=== PATIENT | female | born 1945 | race Caucasian/White ===

== ENCOUNTER 2017-09-20 08:42 | Outpatient (CLI) | payer MEDICARE, BC ==
[~2017-09-20] VITALS: Ht 160 cm; Wt 77.5 kg
[~2017-09-20 08:42] MED LIST: GLUCOTROL XL 1010 MG PO; JANUVIA100 MG PO; LEVAQUIN750 MG PO; LISINOPRIL-HCTZ1 T13 PO; ROBITUSSIN AC (10 M1 PO; TENORMIN50 MG PO; ZOCOR40 MG PO
[2017-09-20 09:07] LABS: BASOPHILS 0.1 % (0-2); EOSINOPHILS 2.4 % (0-7); HEMATOCRIT 28.8 % (36.0-48.0); HEMOGLOBIN 9.5 g/dL (12-16); IMMATURE GRANULOCYTES 0.1 % (0-5); LYMPHOCYTES 25.6 % (15-50); MCH 30.6 pg (26.0-34.0); MCV 92.9 fL (80.0-100.0); MEAN PLATELET VOLUME 9.8 fL (7.4-10.4); MONOCYTES 7.5 % (2-11); NEUTROPHILS 64.3 % (40-80); PLATELET COUNT 226 10x3/uL (130-400); RDW 15.2 % (11.5-14.5); WBC 7.8 10x3/uL (4.8-10.8)
[2017-09-20 09:21] LABS: APTT 24.7 SECONDS (22.8-39.4); PROTIME 12.8 SECONDS (11.6-15.0)
[2017-09-20 09:26] LABS: ANION GAP 13.6 mmol/L (8-16); CALCIUM 8.5 mg/dL (8.5-10.1); CARBON DIOXIDE 24.7 mmol/L (21.0-32.0); CREATININE - SERUM 1.7 mg/dL (0.6-1.3); POTASSIUM - SERUM 4.3 mmol/L (3.5-5.1)
[2017-09-20] MEDS ORDERED: GLUCOPHAGE1000 MG PO (09:52)
[2017-09-20] MEDS ORDERED: HYZAAR 50-12.51 TAB PO (09:53)
[2017-09-20] MEDS ORDERED: PROTONIX40 MG PO (09:54)
[2017-09-20] MEDS ORDERED: WELCHOL625 MG (09:54)
[2017-09-20] MEDS ORDERED: BIOTIN5 MG PO (09:55)
[2017-09-20] MEDS ORDERED: CENTRUM SILVER1 TA1 PO (09:55)
[2017-09-20] MEDS ORDERED: PEPCID AC20 MG PO (09:56)
[2017-09-20 10:05] VITALS: Ht 160 cm; Wt 77.5 kg
== END 2017-09-20 14:45 | disposition home or self-care (01) ==
LOC: D.SP 08:42
PROVIDERS: Radiology Diagnostic Radiology
DX: D64.9 Anemia, unspecified (principal); Z01.812 Encounter for preprocedural laboratory examination

== ENCOUNTER 2017-10-23 06:30 | Day surgery (SDC) | payer MEDICARE, BC ==
[2017-10-20 14:27] LABS: BASOPHILS 0.1 % (0-2); EOSINOPHILS 2.4 % (0-7); HEMATOCRIT 27.6 % (36.0-48.0); IMMATURE GRANULOCYTES 0.1 % (0-5); LYMPHOCYTES 27.9 % (15-50); MCH 30.5 pg (26.0-34.0); MCHC 32.6 g/dL (31.0-37.0); MCV 93.6 fL (80.0-100.0); MEAN PLATELET VOLUME 9.9 fL (7.4-10.4); NEUTROPHILS 62.5 % (40-80); PLATELET COUNT 233 10x3/uL (130-400); RBC 2.95 10x6/uL (4.00-5.40); RDW 15.8 % (11.5-14.5)
[2017-10-20 14:41] LABS: APTT 24.4 SECONDS (22.8-39.4); INR 1.04 (0.85-1.17); PROTIME 13.2 SECONDS (11.6-15.0)
[2017-10-20 14:42] LABS: ANION GAP 9.3 mmol/L (8-16); CALCIUM 8.6 mg/dL (8.5-10.1); CARBON DIOXIDE 27.1 mmol/L (21.0-32.0); CREATININE - SERUM 1.4 mg/dL (0.6-1.3); POTASSIUM - SERUM 4.4 mmol/L (3.5-5.1)
[~2017-10-23] VITALS: Ht 160 cm; Wt 77.1 kg
[~2017-10-23 06:30] MED LIST changes: +BIOTIN5 MG PO; +CENTRUM SILVER1 TA1 PO; +GLUCOPHAGE1000 MG PO; +HYZAAR 50-12.51 TAB PO; +PEPCID AC20 MG PO; +PROTONIX40 MG PO; +WELCHOL625 MG
[2017-10-23 08:32] VITALS: BP 155/75; Ht 160 cm; Wt 77.1 kg
[2017-10-23] MEDS ORDERED: HYDROCODON-ACE1 EAC7 PO (09:59)
== END 2017-10-23 12:05 | disposition home or self-care (01) ==
LOC: D.OPS 06:30 → D.PAN 09:00 → D.OPS 10:00 → D.PAN 10:00 → D.OPS 12:05
PROVIDERS: Anesthesiology
DX: C90.00 Multiple myeloma not having achieved remission (principal); Z01.812 Encounter for preprocedural laboratory examination

== ENCOUNTER → 2017-12-21 13:16 | Outpatient (CLI) | payer MEDICARE, BC ==
[2017-10-23 08:32] VITALS: BMI 30.1
[~2017-12-21 13:16] MED LIST changes: +HYDROCODON-ACE1 EAC7 PO
== END | disposition home or self-care (01) ==
LOC: D.US 13:16
DX: I82.493 Acute embolism and thrombosis of other specified deep vein of lower extremity, bilateral (principal)

== ENCOUNTER 2018-03-28 05:20 | Outpatient (CLI) | payer MEDICARE, BC ==
[~2018-03-28] VITALS: Ht 160 cm; Wt 75.0 kg
[2018-03-28 05:52] LABS: BASOPHILS 0.1 % (0-2); EOSINOPHILS 2.8 % (0-7); HEMATOCRIT 29.8 % (36.0-48.0); HEMOGLOBIN 9.5 g/dL (12-16); IMMATURE GRANULOCYTES 0.4 % (0-5); LYMPHOCYTES 22.6 % (15-50); MCH 29.5 pg (26.0-34.0); MCHC 31.9 g/dL (31.0-37.0); MCV 92.5 fL (80.0-100.0); MONOCYTES 8.3 % (2-11); NEUTROPHILS 65.8 % (40-80); PLATELET COUNT 262 10x3/uL (130-400); RBC 3.22 10x6/uL (4.00-5.40); RDW 15.4 % (11.5-14.5); WBC 9.1 10x3/uL (4.8-10.8)
[2018-03-28 05:56] LABS: APTT 24.3 SECONDS (22.8-39.4); INR 1.02 (0.85-1.17)
[2018-03-28 06:13] LABS: ANION GAP 16.4 mmol/L (8-16); CALCIUM 9.2 mg/dL (8.5-10.1); CARBON DIOXIDE 25.7 mmol/L (21.0-32.0); CREATININE - SERUM 1.8 mg/dL (0.6-1.3); POTASSIUM - SERUM 4.1 mmol/L (3.5-5.1)
[2018-03-28 06:20] VITALS: BP 146/59; Ht 160 cm; Wt 75.0 kg
--- NOTE | 2018-03-28 09:24 | NUR ---
0900 SEE POST PROCEDURE CHECKLIST FOR VITAL SIGN TRENDS 0915 WATER SERVED
--- NOTE | 2018-03-28 09:24 | NUR ---
0915 NO BLEEDING FROM BX SITE
== END 2018-03-28 10:15 | disposition home or self-care (01) ==
LOC: D.SP 05:20 → D.CT 08:00 → D.SP 08:00
PROVIDERS: General Practice
DX: C90.00 Multiple myeloma not having achieved remission (principal)

== ENCOUNTER 2018-08-16 08:30 | Outpatient (CLI) | payer MEDICARE, BC ==
[~2018-08-16] VITALS: Ht 160 cm; Wt 72.7 kg
[2018-08-16 09:01] LABS: BASOPHILS 0.1 % (0-2); EOSINOPHILS 2.3 % (0-7); HEMATOCRIT 28.4 % (36.0-48.0); HEMOGLOBIN 9.2 g/dL (12-16); IMMATURE GRANULOCYTES 0.2 % (0-5); LYMPHOCYTES 20.8 % (15-50); MCH 29.8 pg (26.0-34.0); MCHC 32.4 g/dL (31.0-37.0); MCV 91.9 fL (80.0-100.0); MONOCYTES 7.5 % (2-11); NEUTROPHILS 69.1 % (40-80); PLATELET COUNT 219 10x3/uL (130-400); RBC 3.09 10x6/uL (4.00-5.40); WBC 8.1 10x3/uL (4.8-10.8)
[2018-08-16 09:12] LABS: ANION GAP 13.6 mmol/L (8-16); CALCIUM 9.3 mg/dL (8.5-10.1); CARBON DIOXIDE 26.4 mmol/L (21.0-32.0); CREATININE - SERUM 2.2 mg/dL (0.6-1.3)
[2018-08-16 09:13] LABS: APTT 25.6 SECONDS (22.8-39.4); INR 0.97 (0.85-1.17); PROTIME 12.4 SECONDS (11.6-15.0)
[2018-08-16] MEDS ORDERED: HYDRALAZINE HCL50 MG PO (09:58)
[2018-08-16] MEDS ORDERED: HCTZ25 MG PO (09:58)
[2018-08-16 10:00] VITALS: BP 132/57; Ht 160 cm; Wt 72.7 kg
--- NOTE | 2018-08-16 13:37 | NUR ---
1157-RECD TO ROOM FROM IR. ALERT. RESP WITH EASE. DRESSING TO R LUMBAR AREA DRY AND INTACT. DENIES PAIN. 1230-REGULAR LUNCH TRAY SERVED. NO NAUSEA.
--- NOTE | 2018-08-16 14:22 | NUR ---
1410-D/C HOME VIA WHEELCHAIR WITH SON.
== END 2018-08-16 14:10 | disposition home or self-care (01) ==
LOC: D.SP 08:30 → D.CT 11:00 → D.SP 14:10
PROVIDERS: Radiology Vascular & Interventional Radiology; ATTEND Internal Medicine Hematology & Oncology
DX: C90.00 Multiple myeloma not having achieved remission (principal)

== ENCOUNTER 2018-09-13 11:29 | Outpatient (CLI) | payer MEDICARE, BC ==
[~2018-09-13] VITALS: Ht 160 cm; Wt 73.2 kg
[~2018-09-13 11:29] MED LIST changes: +HCTZ25 MG PO; +HYDRALAZINE HCL50 MG PO
[2018-09-13 14:41] VITALS: BP 144/63; Ht 160 cm; Wt 73.2 kg
--- NOTE | 2018-09-13 17:01 | NUR ---
PATIENT TOLERATED BLOOD TRANSFUSION WITHOUT ANY SIGNS OR SYMPTOMS OF TRANSFUSION REACTION. DISCHARGED VIA WHEELCHAIR TO PRIVATE VEHICLE WITH SON
== END 2018-09-13 17:01 | disposition home or self-care (01) ==
LOC: D.OPS 11:29
PROVIDERS: ATTEND Internal Medicine Hematology & Oncology
DX: D64.9 Anemia, unspecified (principal)

== ENCOUNTER → 2018-09-17 07:55 | Outpatient (CLI) | payer MEDICARE, BC ==
[2018-09-13 14:41] VITALS: BMI 28.5
[~2018-09-17 07:55] MED LIST changes: +PIOGLITAZONE15 MG PO
== END | disposition home or self-care (01) ==
LOC: D.HCCARDIO 09-13 13:30
PROVIDERS: ATTEND Internal Medicine Cardiovascular Disease
DX: I10 Essential (primary) hypertension (principal)

== ENCOUNTER 2018-09-17 08:55 | Observation (INO) | payer MEDICARE, BC ==
[~2018-09-17] VITALS: Ht 160 cm; Wt 73.9 kg
[~2018-09-17 08:55] MED LIST changes: -PIOGLITAZONE15 MG PO
[2018-09-17] MEDS ORDERED: PIOGLITAZONE15 MG PO (09:12)
[2018-09-17 09:49] LABS: BASOPHILS 0.1 % (0-2); EOSINOPHILS 2.7 % (0-7); HEMOGLOBIN 9.3 g/dL (12-16); IMMATURE GRANULOCYTES 0.7 % (0-5); LYMPHOCYTES 8.8 % (15-50); MCH 29.8 pg (26.0-34.0); MCHC 33.2 g/dL (31.0-37.0); MCV 89.7 fL (80.0-100.0); MEAN PLATELET VOLUME 12.5 fL (7.4-10.4); MONOCYTES 5.1 % (2-11); NEUTROPHILS 82.6 % (40-80); RBC 3.12 10x6/uL (4.00-5.40); RDW 15.8 % (11.5-14.5); WBC 7.7 10x3/uL (4.8-10.8)
[2018-09-17 09:51] LABS: PLATELET COUNT 142 10x3/uL (130-400)
[2018-09-17 09:53] VITALS: BP 135/61
[2018-09-17 09:55] LABS: ALKALINE PHOSPHATASE 42 U/L (46-116); ALT (SGPT) 27 U/L (10-68); BILIRUBIN - TOTAL 0.21 mg/dL (0.2-1.3); CALC OSMOLALITY 299 mosm/kg (275-300); CALCIUM 7.5 mg/dL (8.5-10.1); CARBON DIOXIDE 26.2 mmol/L (21.0-32.0); CHLORIDE - SERUM 110 mmol/L (98-107); CREATININE - SERUM 2.3 mg/dL (0.6-1.3); GLUCOSE 137 mg/dL (74-106); POTASSIUM - SERUM 3.3 mmol/L (3.5-5.1); PROTEIN - SERUM 7.1 g/dL (6.4-8.2); SODIUM 147 mmol/L (136-145); UREA NITROGEN 30 mg/dL (7-18); eGFR NON AFRICAN AMERICAN 22 mL/min (90-120)
[2018-09-17 10:10] LABS: CKMB 0.2 U/L (0.0-3.6); CREATINE KINASE 35 UL (21-215); TROPONIN-I < 0.017 ng/mL (0.000-0.060)
[2018-09-17 11:53] LABS: CKMB 0.5 U/L (0.0-3.6); CREATINE KINASE 44 UL (21-215)
[2018-09-17 11:54] LABS: TROPONIN-I < 0.017 ng/mL (0.000-0.060)
[2018-09-17] MEDS ORDERED: TENORMIN50 MG PO (13:07)
[2018-09-17 13:24] VITALS: BP 145/58; BMI 28.9
[2018-09-17 17:15] VITALS: BP 135/42
[2018-09-17 17:42] LABS: CKMB 0.5 U/L (0.0-3.6); CREATINE KINASE 38 UL (21-215)
[2018-09-17 17:46] LABS: TROPONIN-I < 0.017 ng/mL (0.000-0.060)
--- NOTE | 2018-09-17 18:39 | EC ---
PATIENT:NIKKI MARTIN DATE OF SERVICE: 09/17/18 SEX: F MEDICAL RECORD: [id number] DATE OF : 41 LOCATION:[facility] AGE OF PATIENT: 72 ADMISSION DATE: 09/17/18 REFERRING PHYSICIAN: INTERPRETING PHYSICIAN: SARAH LEDESMA MD ECHOCARDIOGRAM REPORT ECHO CHARGES Date: CLINICAL DIAGNOSIS: ECHOCARDIOGRAPHIC MEASUREMENTS (adult normal given) AC root (d.<3.7cm) cm LV Septum d (<1.2 cm> cm Valve Excursion cm LV Septum (systole) cm Left Atria (s.<4.0cm> cm LVPW d(<1.2cm) cm RV (d.<2.3cm) cm LVPW (sytole) cm LV diastole(<5.6CM) cm MV E-F(>70mm/sec) cm LV systole cm LVOT Diameter cm MV exc.(>10mm) cm Est.ejection fraction (50-75%) % DOPPLER: LVIT cm/sec A cm/sec E cm/sec LA cm/sec RVSP mmHg LVOT cm/sec AOP1/2T m/s Asc. Ao cm/sec RVOT cm/sec RA cm/sec PA cm/sec AV Gradient Peak mmHg AV Mean mmHg AV Area cm MV Gradient Peak mmHg MV Mean mmHg MV Area cm COMMENTS: Solar Engineer: Behavioral Pediatrician: BUTCH# Pericardial Effusion DATE OF SERVICE: 09/17/2018 PROCEDURE: Echocardiogram. FINDINGS: 1. Left ventricular chamber size is within normal limits. Left ventricular systolic function is normal at 65%. 2. Left atrium is enlarged at 4.3 cm. Right atrium and right ventricular chamber sizes are within normal limits. 3. Valvular structures have normal structure and motion. ECHOCARDIOGRAM REPORT [id number] NIKKI MARTIN 4. Doppler interrogation reveals moderate mitral regurgitation, mild tricuspid regurgitation, no other valvular insufficiency or stenosis. Pulmonary systolic pressure is estimated at 32 mmHg. 5. No evidence of pericardial effusion or left ventricular thrombus. TRANSINT:[id number] Voice Confirmation ID: [id number] DOCUMENT ID: [id number] SARAH LEDESMA MD at 1837 CC: [id number] DICTATION DATE: 09/17/18 1151 EXTRACTIONS TECHNOLOGIST: 09/17/18 1250 ADM IN [facility] [address] [place] [address]
--- NOTE | 2018-09-17 18:39 | CN ---
PATIENT NAME:NIKKI MARTIN MEDICAL RECORD: [id number] : 41 LOCATION:[facility] ADMIT DATE: 09/17/18 ACCOUNT: [id number] CONSULTING PHYSICIAN: SARAH LEDESMA MD REFERRING PHYSICIAN: LASHAUN CROWLEY MD DATE OF CONSULTATION: 09/17/2018 DIAGNOSES: 1. Palpitations. 2. Multiple myeloma. 3. Hypertension. 4. Hyperlipidemia. 5. Vbm-wbvifsn-bledayxxl diabetes. HISTORY OF PRESENT ILLNESS: Mrs. Martin presents to the Emergency Room with palpitation. She has not had dysrhythmias since she has been here. She was actually getting an echocardiogram and felt a sudden onset of palpitation. She did not have any chest pain or chest discomfort with this, just the sensation that her heart was jumping. She was sent to the Emergency Room. She does not feel that sensation now, sinus rhythm in the 70s. She has no cardiac history. PHYSICAL EXAMINATION: GENERAL APPEARANCE: Well-nourished, well-developed, appears stated age. Level of distress, comfortable. PSYCHIATRIC: Mental status, alert, normal affect. Orientation, oriented to time, place and person. EYES: Lids and conjunctiva, noninjected. No discharge, no pallor. ENT: Lips, teeth, gums, normal dentition. Oropharynx, no cyanosis, no pallor. NECK: Carotid arteries, bilateral normal upstroke, no bruits, no thrills. JUGULAR VEINS: No jugular venous pressure or distention. CERVICAL LYMPH NODES: Nontender, nonenlarged. THYROID: Not enlarged. Nontender. No nodules. LUNGS: Respiratory effort, unlabored. CHEST: Normal curvature. No thoracic deformity. No chest wall tenderness. Percussion, resonant. Auscultation, clear. No wheezes, no rales, no rhonchi. CARDIOVASCULAR: Precordial exam, nondisplaced. No heaves or pericardial thrills. Rate and rhythm, regular. Heart sounds, normal S1, normal S2. No S3, no gallop, no rub. Systolic murmur, not heard. Diastolic murmur, not heard. EXTREMITIES: No cyanosis, no edema. Peripheral pulses, full and equal in all extremities, except as noted. No bruits appreciated. ABDOMEN: Soft, nondistended. Normal aorta. No bruit. Nontender. No masses. Liver, nontender, no hepatomegaly. Spleen, nontender, no splenomegaly. MUSCULOSKELETAL: No joint tenderness. No joint swelling. No erythema. NEUROLOGICAL: Normal gait, normal strength, normal tone. SKIN: Warm and dry. OVERALL IMPRESSION: Palpitations. On telemetry, we will find the echo and evaluate the echo. TRANSINT:[id number] Voice Confirmation ID: [id number] DOCUMENT ID: [id number] CONSULT REPORT [id number] NIKKI MARTIN, SARAH CAPPS at 1839 CC: [id number] DICTATION DATE: 09/17/18 1124 BRICK OFFBEARER: 09/17/18 1153 ADM IN [place] [id number] [place] [id number]
[2018-09-17 21:57] VITALS: BP 128/46
[2018-09-17 23:53] LABS: CKMB 0.4 U/L (0.0-3.6); CREATINE KINASE 32 UL (21-215); TROPONIN-I 0.021 ng/mL (0.000-0.060)
--- NOTE | 2018-09-18 02:35 | NUR ---
REC'D. AT CHGE OF SHIFT.IN BED TALKING ON PHONE DENIES ANY COMPLAINTS OR DISCOMFORT AT PRESENT TIME, WILL CONTINUE TO MONITOR FOR ANY CHGES AND FOLLOW CURRENT PLAN OF CARE,
--- NOTE | 2018-09-18 04:00 | NUR ---
I have reviewed this patient and I concur with the Shift Assessment completed by the Licensed Practical Nurse today this shift.
[2018-09-18 04:45] VITALS: BP 110/43
[2018-09-18 07:04] LABS: BASOPHILS 0.2 % (0-2); HEMATOCRIT 26.7 % (36.0-48.0); HEMOGLOBIN 8.9 g/dL (12-16); IMMATURE GRANULOCYTES 0.6 % (0-5); MCH 29.8 pg (26.0-34.0); MCHC 33.3 g/dL (31.0-37.0); MCV 89.3 fL (80.0-100.0); NEUTROPHILS 74.2 % (40-80); PLATELET COUNT 136 10x3/uL (130-400); RBC 2.99 10x6/uL (4.00-5.40); RDW 15.7 % (11.5-14.5); WBC 6.2 10x3/uL (4.8-10.8)
[2018-09-18 07:11] LABS: ALBUMIN 2.7 g/dL (3.4-5.0); ANION GAP 12.2 mmol/L (8-16); BILIRUBIN - TOTAL 0.25 mg/dL (0.2-1.3); CARBON DIOXIDE 24.6 mmol/L (21.0-32.0); CREATININE - SERUM 2.6 mg/dL (0.6-1.3); POTASSIUM - SERUM 3.8 mmol/L (3.5-5.1); PROTEIN - SERUM 6.5 g/dL (6.4-8.2)
[2018-09-18 09:08] VITALS: BP 146/58
--- NOTE | 2018-09-18 10:29 | NUR ---
PT HAS AMBULATED WITH MINIMAL ASSISTANCE TO BATHROOM THIS AM. NO COMPLAINTS AT PRESENT. DOES NOT LIKE THE FALL ALARM IN PLACE BUT WILL NOT SIGN THE REFUSAL FORM AT THIS TIME. CALL LIGHT IN REACH
[2018-09-18 13:28] VITALS: BP 113/47
--- NOTE | 2018-09-18 13:44 | HP ---
PATIENT: NIKKI MARTIN MEDICAL RECORD: [id number] ACCOUNT: [id number] LOCATION:[facility] : 41 ADMISSION DATE: 09/17/18 PCP: LASHAUN CROWLEY MD HISTORY AND PHYSICAL EXAMINATION DATE ASSIGNED TO OBSERVATION: 09/17/2018 CHIEF COMPLAINT: "Heart was jumping." HISTORY OF PRESENT ILLNESS: This is a 72-year-old white female who is on Revlimid for kappa-light chain multiple myeloma by Dr. Szymanski. An echocardiogram had been ordered for today. While she was undergoing the echocardiogram, she felt a sudden onset of palpitations described as "my heart was jumping." She denied any chest pain or shortness of breath. She was sent to Dr. Szymanski's office; however, Dr. Szymanski was not there, so she was referred to the ER where she was seen. LABORATORY DATA: CBC showed a white count 7700 with hemoglobin 9.3. Basic metabolic panel was okay except BUN and creatinine were high at 30 and 2.3 respectively. Troponin was normal. She is assigned to observation on telemetry. Cardiology and Dr. Szymanski, are both consulted. PAST MEDICAL HISTORY: Diabetes, hyperlipidemia, hypertension, and multiple myeloma as mentioned above. PAST SURGICAL HISTORY: Hysterectomy, hip arthroplasty, retinal surgery, and port placement. ALLERGIES: REPORTED TO GIANNA ENCARNACION. CURRENT MEDICATIONS: Revlimid capsule per Dr. Szymanski, HCTZ 25 mg once a day p.r.n. swelling, hydralazine 25 mg at bedtime, biotin t.i.d., atenolol 50 mg one-half pill twice a day, glipizide ER 10 once a day, metformin has been stopped, Welchol 625 mg 3 in the morning, Pepcid 20 mg twice a day, and simvastatin 40 mg once a day. She was recently started on pioglitazone 15 mg once a day and Centrum Silver multiple vitamin. SOCIAL HISTORY: She is . Her has Parkinson's disease. HABITS: Never smoked. No alcohol or drugs. FAMILY HISTORY: Father at 55. He had multiple sclerosis. Mother at 82 with complications of diabetes. REVIEW OF SYSTEMS: GENERAL: No major weight changes. HEENT: No particular sinus or allergy problems. RESPIRATORY: No history of asthma or emphysema. CARDIAC: No history of chest pain, arrhythmia, or coronary artery disease. GASTROINTESTINAL: Some heartburn. GENITOURINARY: No significant problems there. MUSCULOSKELETAL: She has had arthritis and a hip replacement. NEUROLOGIC: No migraines or seizures. PSYCHIATRIC: Denies depression or melancholia. HISTORY AND PHYSICAL [id number] NIKKI MARTIN PHYSICAL EXAMINATION: VITAL SIGNS: Temperature 99.1, pulse 78, respirations 20, blood pressure 135/61, O2 sat 98%. GENERAL: She is awake and alert. She is in no acute distress. SKIN: Warm and dry. HEENT: Grossly within normal limits. NECK: Supple. No bruit. HEART: Regular rate and rhythm without murmur. LUNGS: Clear. ABDOMEN: Soft. EXTREMITIES: No edema. LABORATORY DATA: CBC showed a white count 7700, hemoglobin 9.3, hematocrit 28, platelets number 142,000. Basic metabolic panel: Sodium 147, potassium 3.3, chloride 110, CO2 26, BUN 30, creatinine 2.3, glucose 137, and calcium 7.5. Liver functions are normal. Troponin is less than 0.017. Chest x-ray shows no acute process. The echo was completed this morning and showed an ejection fraction of 65%, left atrium is little enlarged, and normal valve structures with moderate mitral regurgitation. ASSESSMENT: 1. Palpitations on Revlimid for kappa light chain multiple myeloma. 1. Diabetes. 2. Hypertension. PLAN: Telemetry. Cardiology is consulted. Dr. Szymanski was consulted. Monitor sugar. Other tests and procedures as warranted. TRANSINT:[id number] Voice Confirmation ID: [id number] DOCUMENT ID: [id number] LASHAUN CROWLEY MD at 1344 CC: [id number] DICTATION DATE: 09/17/182048 CHOCOLATE COATER: 09/17/182117 ADM IN [facility] [address] [place] [address]
[2018-09-18 13:46] VITALS: BMI 28.8
[2018-09-18 16:19] VITALS: Ht 160 cm; Wt 73.9 kg
--- NOTE | 2018-09-18 17:00 | MORECARE ---
CASE MANAGEMENT DISCHARGE SUMMARY PATIENT: NIKKI MARTIN UNIT: [id number] ADM DATE: 09/17/18 AGE: 72 : 43 SEX: F ROOM/BED: D.2206 AUTHOR: АНДРЕЙ CORDON PHYSICIAN: REFERRING PHYSICIAN: LASHAUN CROWLEY MD DATE OF SERVICE: 09/18/18 Discharge Plan Patient Name: NIKKI MARTIN [facility] [facility] 1945 Planned Disposition: Home Anticipated Discharge Date: Discharge Date: Expected LOS: Initial Reviewer: [email or web address] Initial Review Date: 09/17/2018 Generated: 09/18/18 5:59 pm Comments DCP- Discharge Planning Updated by [email or web address]: Precious Gutierrez on 09/18/18 3:[address] CORBIN served and explained, copy given to patient Coverage Notice Reviewer: [email or web address] - Precious Gutierrez Notice Issued Date-Time: 09/18/2018 16:53 Notice Type: Medicare Outpatient Observation Notice Notice Delivered To: Patient Relationship to Patient: Director Pharmacology Name: Delivery Method: HAND - Hand Delivered Barbie Days: Prior Verbal Notification: Recipient Understood Notice: Yes Recipient Signature: Yes Med Rec Note Co-signed by Attending: Coverage Notice Comment: Patient Name: NIKKI MARTIN Page [phone] at 1700 All edits/amendments must be made on the electronic document DICTATION DATE: 09/18/181658 HIV/AIDS CARE NURSE: NAZARIO 09/18/181658 RPT#: [id number] DC DATE: STATUS: ADM IN [facility] [address] [place] [address] END OF REPORT
[2018-09-18 17:04] VITALS: BP 126/48
== END 2018-09-18 17:17 | disposition home or self-care (01) ==
LOC: D.ER 08:55 → D.MS 11:45 → OBSVTIME 11:58 → D.MS 09-18 17:17
PROVIDERS: Family Medicine; ADMIT Family Medicine; ATTEND Family Medicine
DX: R00.2 Palpitations (principal); E11.9 Type 2 diabetes mellitus without complications; I10 Essential (primary) hypertension; C90.00 Multiple myeloma not having achieved remission; E78.5 Hyperlipidemia, unspecified

== ENCOUNTER 2019-03-19 15:06 | Inpatient (IN) | payer MEDICARE, BC ==
[~2019-03-19] VITALS: Ht 160 cm; Wt 75.4 kg
[~2019-03-19 15:06] MED LIST changes: +PIOGLITAZONE15 MG PO; -WELCHOL625 MG; +WELCHOL625 MG PO
[2019-03-19 16:06] LABS: BASOPHILS 4.7 % (0-2); EOSINOPHILS 4.2 % (0-7); HEMATOCRIT 28.7 % (36.0-48.0); HEMOGLOBIN 9.4 g/dL (12-16); IMMATURE GRANULOCYTES 1.2 % (0-5); LYMPHOCYTES 11.5 % (15-50); MCH 32.1 pg (26.0-34.0); MCHC 32.8 g/dL (31.0-37.0); MEAN PLATELET VOLUME 9.8 fL (7.4-10.4); MONOCYTES 16.7 % (2-11); NEUTROPHILS 61.7 % (40-80); RBC 2.93 10x6/uL (4.00-5.40); RDW 17.3 % (11.5-14.5); WBC 4.1 10x3/uL (4.8-10.8)
[2019-03-19 16:12] LABS: APTT 25.5 SECONDS (22.8-39.4); INR 1.01 (0.85-1.17); PROTIME 13.3 SECONDS (11.6-15.0)
[2019-03-19 16:14] LABS: PLATELET COUNT 182 10x3/uL (130-400)
[2019-03-19 16:33] LABS: APPEARANCE CLEAR (CLEAR); BILIRUBIN NEGATIVE (NEGATIVE); COLOR YELLOW (YELLOW); GLUCOSE NEGATIVE (NEGATIVE); KETONE NEGATIVE (NEGATIVE); NITRITE NEGATIVE (NEGATIVE); PROTEIN NEGATIVE (NEGATIVE); UROBILINOGEN NORMAL (NORMAL)
[2019-03-19 16:45] LABS: ALBUMIN 2.9 g/dL (3.4-5.0); ALKALINE PHOSPHATASE 59 U/L (46-116); ALT (SGPT) 23 U/L (10-68); BILIRUBIN - TOTAL 0.19 mg/dL (0.2-1.3); CALC OSMOLALITY 297 mosm/kg (275-300); CARBON DIOXIDE 24.3 mmol/L (21.0-32.0); CHLORIDE - SERUM 111 mmol/L (98-107); CKMB 1.1 U/L (0.0-3.6); CREATINE KINASE 45 UL (21-215); CREATININE - SERUM 1.8 mg/dL (0.6-1.3); GLUCOSE 100 mg/dL (74-106); PRO BNP 3277 pg/mL (0-450); PROTEIN - SERUM 6.2 g/dL (6.4-8.2); SODIUM 147 mmol/L (136-145); TROPONIN-I < 0.017 ng/mL (0.000-0.060); UREA NITROGEN 28 mg/dL (7-18); eGFR NON AFRICAN AMERICAN 29 mL/min (90-120)
[2019-03-19 16:47] LABS: CALCIUM 6.8 mg/dL (8.5-10.1)
[2019-03-19 18:04] VITALS: BP 125/38
--- NOTE | 2019-03-19 18:28 | NUR ---
STOP TIME CALCIUM 6110
[2019-03-19 20:53] VITALS: BP 131/45
[2019-03-19 21:05] VITALS: BP 131/45; BMI 30.5
--- NOTE | 2019-03-19 21:20 | NUR ---
RECIEVED REPORT FROM ER NURSE. PT VSS, AAOX4, ALTHOUGH APPEARS LETHARGIC. LEFT CHEST IMPLANTED PORT NOTED, ALTHOUGH NOT ACCESSED. PIV'S TO RAC AND L.WRIST NOTED. ASSIST PT ON BED BROWN, PT STATES SHE HAS BEEN URINATING SINCE LASIX WAS ADMINISTERED IN THE ER. ZITHROMAX AND ALBUMIN ORDERED IN ER BUT NOT GIVEN. WILL START MEDS WHEN ADMISSION ASSEMENT IS COMPLETED. PT REFUSE INSULIN, STATES SHE TAKES GLIPIZIDE AT HOME. ALTHOUGH FSBS IS 113 AT THIS TIME. PT DENIES ANY FURTHER NEEDS AT THIS TIME. FAMILY AT BEDSIDE. WILL CPOC. CL WITHIN REACH, BED IN LOW, SR UP X2.
[2019-03-20 00:23] VITALS: BP 142/58
[2019-03-20 06:05] VITALS: BP 133/47
[2019-03-20 06:11] LABS: HEMATOCRIT 24.8 % (36.0-48.0); HEMOGLOBIN 8.2 g/dL (12-16); MCH 31.8 pg (26.0-34.0); MCHC 33.1 g/dL (31.0-37.0); MCV 96.1 fL (80.0-100.0); MEAN PLATELET VOLUME 9.9 fL (7.4-10.4); PLATELET COUNT 168 10x3/uL (130-400); RBC 2.58 10x6/uL (4.00-5.40); RDW 17.2 % (11.5-14.5)
--- NOTE | 2019-03-20 06:22 | NUR ---
FSBS 73. NO INSULIN GIVEN AT THIS TIME. ORANGE JUICE GIVEN. PT VOICED THANKS. WILL CTM.
[2019-03-20 06:39] LABS: WBC 2.8 10x3/uL (4.8-10.8)
[2019-03-20 06:59] LABS: ALBUMIN 2.9 g/dL (3.4-5.0); BILIRUBIN - TOTAL 0.33 mg/dL (0.2-1.3); CARBON DIOXIDE 22.5 mmol/L (21.0-32.0); PROTEIN - SERUM 5.6 g/dL (6.4-8.2)
[2019-03-20 07:23] VITALS: BP 125/47
[2019-03-20 07:26] LABS: ANION GAP 15.8 mmol/L (8-16); POTASSIUM - SERUM 3.3 mmol/L (3.5-5.1)
[2019-03-20 07:27] LABS: CALCIUM 6.4 mg/dL (8.5-10.1)
--- NOTE | 2019-03-20 09:58 | NUR ---
HELPED PT TO BATHROOM AND BACK TO BED. PT PLACED ON REVERSE ISOLATION AT THIS TIME. PT DENIES ANY OTHER NEEDS AT THIS TIME. CALL LIGHT IN REACH, NAD NOTED, WILL CONTINUE TO MONITOR.
[2019-03-20 10:14] LABS: % SATURATION 8 % (15-55); IRON 15 ug/dl (35-150); TOTAL IRON BIND CAPACITY 185 ug/dl (260-445); UNSAT IRON BIND CAPACITY 170 ug/dl (150-375)
--- NOTE | 2019-03-20 10:30 | NUR ---
CALLED PHARMACY AND SPOKE TO BRYNN INFORMED HIM THAT I NEED VALTREX AND GRANIX FOR PT.
[2019-03-20 10:52] LABS: FERRITIN 207 ng/mL (3-244)
[2019-03-20 12:03] VITALS: BP 130/37
[2019-03-20 12:06] LABS: ANISOCYTOSIS OCC; EOSINOPHILS 1 % (0-7); HYPOCHROMASIA OCC; LYMPHOCYTES 21 % (15-50); MONOCYTES 19 % (2-11); NEUTROPHILS 52 % (40-80); PLATELET ESTIMATE NORMAL
--- NOTE | 2019-03-20 12:40 | NUR ---
PER DR. BARROS, CONSENTS FOR BRONCH WITH LAVAGE AND NPO AFTER MIDNIGHT.
[2019-03-20 14:00] VITALS: BMI 30.4
--- NOTE | 2019-03-20 15:05 | NUR ---
RECEIVED CALL FROM VICTOR HUGO WITH [facility], UPDATED THEM ON PT'S PLAN OF CARE.
--- NOTE | 2019-03-20 15:17 | NUR ---
CALLED DR. CROWLEY'S OFFICE AND LEFT VOICEMAIL WITH JEAN TO SEE IF DR. CROWLEY WANTED TO ORDER SOMETHING FOR LOW CALCIUM.
[2019-03-20 16:20] VITALS: BP 128/36
[2019-03-20 20:17] VITALS: BP 149/42
--- NOTE | 2019-03-20 21:21 | NUR ---
EVENING ROUNDS COMPLETED. VSS, AAOX3. ALTHOUGH PT APPEARS LETHARGIC. PT ALSO APPEARS CLAMMY. ASSESSED FSBS, NOW 70. APPLE JUICE WITH 2 PACKS OF CANE SUGAR GIVEN. IV CALCIUM INFUSING @60MLS/HR. FERNANDO CASTRO PROVIDED PER PT REQUEST. PT DENIES ANY FURTHER NEEDS AT THIS TIME. WILL CPOC. CL WITHIN REACH, BED IN LOW, SR UP X2.
[2019-03-21] VITALS (7 sets, daily range): BP systolic 118–155; BP diastolic 30–47
--- NOTE | 2019-03-21 06:39 | NUR ---
FSBS 61. SINCE PT IS NPO, DEXTROSE GIVEN PER PROTOCOL. NO S/S OF DISTRESS NOTED AT THIS TIME. WILL CTM.
[2019-03-21 06:42] LABS: BASOPHILS 1.3 % (0-2); EOSINOPHILS 4.9 % (0-7); HEMATOCRIT 25.7 % (36.0-48.0); HEMOGLOBIN 8.5 g/dL (12-16); IMMATURE GRANULOCYTES 0.4 % (0-5); LYMPHOCYTES 11.9 % (15-50); MCH 32.7 pg (26.0-34.0); MCHC 33.1 g/dL (31.0-37.0); MEAN PLATELET VOLUME 10.2 fL (7.4-10.4); MONOCYTES 19.1 % (2-11); NEUTROPHILS 62.4 % (40-80); PLATELET COUNT 158 10x3/uL (130-400); RDW 17.6 % (11.5-14.5)
[2019-03-21 06:53] LABS: MCV 98.8 fL (80.0-100.0); WBC 4.7 10x3/uL (4.8-10.8)
[2019-03-21 07:02] LABS: ANION GAP 15.7 mmol/L (8-16); CALCIUM 7.4 mg/dL (8.5-10.1); CARBON DIOXIDE 21.7 mmol/L (21.0-32.0); POTASSIUM - SERUM 3.4 mmol/L (3.5-5.1)
--- NOTE | 2019-03-21 07:10 | NUR ---
REPORT RECIEVED FROM PATIENT RESOURCE SPECIALIST AND PATIENT CARE ASSUMED. PATIENT LYAING IN BED ON LT SIDE WITH EYES CLOSED AND BREATHING EVENLY. WILL CONTINUE WITH PLAN OF CARE. SR UPX 2 BED IN LOW POSITION AND CALL LIGHT IN REACH.
--- NOTE | 2019-03-21 08:32 | NUR ---
PATIENT IS STABLE AND VSS. PATIENT TO SURGERY FOR BRONCHOSCOPY VIA STRETCHER ACCOMPANIED BY SURGERY PERSONNEL.
--- NOTE | 2019-03-21 11:55 | NUR ---
PATIENT UP TO BR. PATIENT IS STEADY ON FEET COMPLAINS OF WEAKNESS. ASSISTED TO BR AND BACK TO BED. PATIENT IS STABLE AND VSS. WILL CONTINUE TO MONITOR. SR UP X 2 BED IN LOW POSITION AND CALL LIGHT IN REACH.
--- NOTE | 2019-03-21 14:51 | NUR ---
PATIENT LAYING IN BED ON BACK WATCHINJG TV. PATIENT IS STABLE AND VSS. PATINET DENIES ANY NEEDS OR PAIN. WILL CONTINUE TO MONITOR. SR UP X 2 BED IN LOW POSITION AND CALL LIGHT IN REACH.
--- NOTE | 2019-03-21 19:25 | NUR ---
IV BEEPING. UNABLE TO USE CURRENT IV SITE PUMP CONTINUES TO SAY OCCLUDED AND WONT FLUSH. IV CATH REMOVED FROM RT FOREARM. 22G INSERTED IN RT UPPER ARM X1 ATTEMPT. PT PURA WELL. ALERT AND ORIENTED X4. SON AT BEDSIDE. RESP IRREG. SOB NOTED. O2 @ 3L/HFC. REPORTS NONPROD COUGH. NO DISTRESS. DENIES PAIN. AMB WITH ASSIST X1 WITH WALKER. GEN WEAKNESS NOTED. NEUTROPENIC PRECAUTIONS IN USE. SR ELEVATED X2. CL IN REACH.
[2019-03-22] VITALS (15 sets, daily range): BP systolic 115–170; BP diastolic 38–64; Ht 160 cm; Wt 75.4 kg
--- NOTE | 2019-03-22 01:02 | NUR ---
LYING IN BED. ALERT AND ORIENTED X4. SON AT BEDSIDE. RESP IRREG. SOB WITH MIN EXERTION. O2 @ 3L/HFC. NONPROD COUGH NOTED. DENIES PAIN. AMB WITH ASSIST WITH WALKER. GEN WEAKNESS NOTED. REPORTS SORE THROAT. SALINE LOCK TO LT FOREARM IS INFILTRATED. IV CATH REMOVED AT THIS TIME. 22 G INSERTED IN RT UPPER ARM X1 ATTEMPT. PT PURA WELL. NEUTROPENIC PRECAUTIONS IN USE. NO DISTRESS. SR ELEVATED X2. CL IN REACH.
--- NOTE | 2019-03-22 01:08 | NUR ---
ASSISTED UP TO BR TO VOID AND BACK TO BED. CL IN REACH. NO DISTRESS.
[2019-03-22 05:55] LABS: HEMATOCRIT 24.1 % (36.0-48.0); HEMOGLOBIN 7.8 g/dL (12-16); MCH 32.2 pg (26.0-34.0); MCHC 32.4 g/dL (31.0-37.0); MCV 99.6 fL (80.0-100.0); MEAN PLATELET VOLUME 9.7 fL (7.4-10.4); PLATELET COUNT 164 10x3/uL (130-400); RBC 2.42 10x6/uL (4.00-5.40); RDW 17.6 % (11.5-14.5); WBC 5.2 10x3/uL (4.8-10.8)
[2019-03-22 05:58] LABS: ANION GAP 12.2 mmol/L (8-16); CARBON DIOXIDE 24.9 mmol/L (21.0-32.0); CREATININE - SERUM 1.8 mg/dL (0.6-1.3); POTASSIUM - SERUM 4.1 mmol/L (3.5-5.1)
--- NOTE | 2019-03-22 08:48 | NUR ---
AWAKE AND ALERT. ORIENTED X3. NO C/O AT THIS TIME. LUNGS ARE DIMINISHED THROUGHOUT WITH FAINT CRACKLES. NON PRODUCTIVE OCCASSIONAL COUGH NOTED. SKIN IS INTACT WITHOUT REDNESS. SOME EDEMA NOTED TO BILATERAL LOWER EXTREMETY, WILL MONITOR. SL TO RIGHT FOREARM IS PATENT WITHOUT REDNESS AT INSERTION SITE. FAMILY AT BEDSIDE. DENIES NEEDS.
--- NOTE | 2019-03-22 09:30 | NUR ---
ATE ALMOST ALL OF BREAKFAST. TOOK AM MEDS WITHOUT DIFFICULTY. FAMILY AT BEDSIDE. DENIES NEEDS.
[2019-03-22 09:36] LABS: ANISOCYTOSIS OCC; EOSINOPHILS 7 % (0-7); LYMPHOCYTES 12 % (15-50); MONOCYTES 15 % (2-11); NEUTROPHILS 54 % (40-80); PLATELET ESTIMATE NORMAL
--- NOTE | 2019-03-22 11:16 | NUR ---
NUTRITION FOLLOW UP INTERVIEW: Patient stated her appetite has been down a little today. She denied N/V/D/C. She stated it has been hard for her to use a knife and cut meats. She agreeded to have chopped meats with her meals. She also agreed to try Glucerna with lunch everyday for extra nutrients. DIET: Neutropenic Diet-Glucerna with lunch, Chopped Meats PO INTAKE: 90% avg x 5 meals WT: 172 lbs BM: No BM recorded since Mar 18 (4 days) SIG LABS: Calcium-7.0(L), Z08-2557(H), Na-147(H), Chloride-14(H), Creatinine-1.8(H), BUN-23(H) SIG MEDS: Pepcid, Lovenox, Humulin R, KCl Goals- Stable weight DHS, Cont PO intake >75%, BM q 3 days Will continue to monitor closely. Clinical Dietitian Following.
[2019-03-22 12:10] LABS: FUNGUS STAIN Final report (())
--- NOTE | 2019-03-22 14:15 | NUR ---
FIRST UNIT OF PRBC UP AT THIS TIME. VSS.
--- NOTE | 2019-03-22 14:30 | NUR ---
TRANSFUSION CONTINUES. VSS. DENIES NEEDS.
[2019-03-22 16:08] LABS: AFB SPECIMEN PROCESSING Concentration (())
--- NOTE | 2019-03-22 17:30 | NUR ---
FIRST UNIT COMPLETED WITH VSS. SECOND UNIT UP AT THIS TIME. WILL MONITOR.
--- NOTE | 2019-03-22 19:00 | NUR ---
REPORT RECEIVED. PT IN BED RR EVEN AND UNLABORED ON 3L HF. SECOND UNIT OF PRBCs INFUSING INTO LEFT CHEST PORT. NO S/SX OF AN ADVERSE REACTION NOTED. NO VOICED C/O OR CONCERS. CALL LIGHT IN REACH WILL CTM.
--- NOTE | 2019-03-22 21:30 | NUR ---
SECOND UNIT OF PRBC FINISHED INFUSING VIA LEFT CHEST PORT. PT TOLERATED WELL. VITAL SIGNS STABLE. NO NEEDS EXPRESSED. CALL LIGHT IN REACH. WILL CTM.
[2019-03-23 00:39] VITALS: BP 166/55
--- NOTE | 2019-03-23 03:29 | NUR ---
PT NOW RESTING QUIETLY. UP WITH ASSIST TO THE RESTROOM MULTIPLE TIMES DURING THE NIGHT. RR EVEN AND UNLABORED. NO S/SX OF DISTRESS OBSERVED. CALL LIGHT IN REACH. WILL CTM.
[2019-03-23 04:00] VITALS: BP 171/52
[2019-03-23 07:15] LABS: CALCIUM 7.5 mg/dL (8.5-10.1); CARBON DIOXIDE 25.8 mmol/L (21.0-32.0); CREATININE - SERUM 1.9 mg/dL (0.6-1.3); POTASSIUM - SERUM 3.8 mmol/L (3.5-5.1)
--- NOTE | 2019-03-23 08:01 | NUR ---
REC'D PT LYING IN BED RESP EVEN AND UNLABORED LUNG SOUNDS DIMINISHED THROUGHOUT. LEFT SUBCLAVIAN PORT ACCESS CLEAN PATENT AND INTACT. LAB REMOVED AND SENT WITH LINE HELPER AT THIS TIME. PORT FLUSHED WITH 20CC NS AT THIS TIME. PT DENIES PAIN AT THIS TIME. PT ASSISTED WITH AMBULATION TO THE BATHROOM. WITH SMALL URINARY OUTPUT. AMBULATED BACK TO BED HEART RATE REGULAR NO EDEMA NOTED TO BLE. SKIN PINK WARM AND DRY. WITH GOOD TURGOR. HOB 30 DEGREES SRX2 BED AT LOWEST SETTING WITH BRAKES ON AND CALL LIGHT WITHIN REACH.
[2019-03-23 08:09] LABS: EOSINOPHILS 14.1 % (0-7); IMMATURE GRANULOCYTES 0.5 % (0-5); LYMPHOCYTES 6.4 % (15-50); MCH 30.8 pg (26.0-34.0); MCHC 33.1 g/dL (31.0-37.0); MEAN PLATELET VOLUME 10.1 fL (7.4-10.4); MONOCYTES 24.8 % (2-11); NEUTROPHILS 52.2 % (40-80); PLATELET COUNT 159 10x3/uL (130-400); RDW 18.4 % (11.5-14.5)
[2019-03-23 08:13] LABS: HEMATOCRIT 33.2 % (36.0-48.0); RBC 3.57 10x6/uL (4.00-5.40); WBC 7.4 10x3/uL (4.8-10.8)
[2019-03-23 08:18] VITALS: BP 91/64
[2019-03-23 13:43] VITALS: BP 146/59
[2019-03-23 16:00] VITALS: BP 151/52
--- NOTE | 2019-03-23 19:25 | NUR ---
PT LYING IN BED RESTING WITH FAMILY AT BEDSIDE, WITHOUT DISTRESS. DENIES PAIN AT THIS TIME. BREATH SOUNDS DECREASED BILAT LOWER LOBES. LEFT CHEST PORT INFUSING ZITHROMAX AT THIS TIME. O2 2L/NC. ENCOURAGED PT TO CALL WHEN NEEDING ASSISTANCE TO BATHROOM. VERBALIZED UNDERSTANDING. DENIES NEEDS. CL IN REACH, WILL CTM
[2019-03-23 19:39] VITALS: BP 165/57
--- NOTE | 2019-03-23 21:00 | NUR ---
PT STATES PAIN IN LEFT SHOULDER IS CRAMP LIKE 06/13 AND REQUESTED NORCO. GAVE ORDERED. DENIES OTHER NEEDS. WILL CTM
[2019-03-24 00:10] VITALS: BP 137/54
--- NOTE | 2019-03-24 01:52 | NUR ---
PT RESTING QUIETLY, NO NEEDS AT THIS TIME. WILL CTM
[2019-03-24 04:23] VITALS: BP 141/52
[2019-03-24 06:47] LABS: HEMATOCRIT 33.4 % (36.0-48.0); HEMOGLOBIN 10.8 g/dL (12-16); MCH 30.6 pg (26.0-34.0); MCHC 32.3 g/dL (31.0-37.0); MCV 94.6 fL (80.0-100.0); MEAN PLATELET VOLUME 9.6 fL (7.4-10.4); PLATELET COUNT 182 10x3/uL (130-400); RBC 3.53 10x6/uL (4.00-5.40); RDW 18.1 % (11.5-14.5)
[2019-03-24 06:52] LABS: WBC 5.3 10x3/uL (4.8-10.8)
[2019-03-24 06:58] LABS: ANION GAP 14.3 mmol/L (8-16); CALCIUM 7.2 mg/dL (8.5-10.1); CARBON DIOXIDE 27.4 mmol/L (21.0-32.0); CREATININE - SERUM 1.7 mg/dL (0.6-1.3); POTASSIUM - SERUM 3.7 mmol/L (3.5-5.1); VANCOMYCIN - RANDOM 10.3 ug/mL (10.0-20.0)
[2019-03-24 07:44] VITALS: BP 143/49
[2019-03-24 07:55] LABS: BASOPHILS 3 % (0-2); EOSINOPHILS 21 % (0-7); LYMPHOCYTES 4 % (15-50); MONOCYTES 31 % (2-11); NEUTROPHILS 40 % (40-80); PLATELET ESTIMATE NORMAL
--- NOTE | 2019-03-24 20:00 | NUR ---
A/O WITH NO SIGNS OF ACUTE DISTRESS. SOB NOTED ON EXERTION. IV TO THE RT AC WITH NO REDNESS OR SWELLING NOTED. NC @2L. C/O 5/10 PAIN IN CHEST. PRN PAIN MEDS GIVEN. DENIES NO OTHER NEEDS AT THIS TIME. CONTINUE PLAN OF CARE.
--- NOTE | 2019-03-24 20:00 | NUR ---
A/O WITH NO ACUTE DISTRESS. CLEAN/DRY DRESSING TO THE LT CHEST PORT. C/O OF 5/10 PAIN. PRN PAIN AND ANTIMEDIC MEDS GIVEN. ASSITED TO BATHROOM AND BACK IN BED. DENIES NO OTHER NEEDS. CONTINUE PLAN OF CARE.
[2019-03-24 20:14] VITALS: BP 134/56
[2019-03-25 00:33] VITALS: BP 137/55
[2019-03-25 05:01] VITALS: BP 153/71
[2019-03-25 06:12] LABS: ANION GAP 11.8 mmol/L (8-16); CALCIUM 7.6 mg/dL (8.5-10.1); CARBON DIOXIDE 28.8 mmol/L (21.0-32.0); CREATININE - SERUM 1.7 mg/dL (0.6-1.3); POTASSIUM - SERUM 3.6 mmol/L (3.5-5.1)
[2019-03-25 06:26] LABS: BASOPHILS 3.6 % (0-2); EOSINOPHILS 10.2 % (0-7); HEMATOCRIT 31.2 % (36.0-48.0); HEMOGLOBIN 10.1 g/dL (12-16); IMMATURE GRANULOCYTES 0.8 % (0-5); LYMPHOCYTES 29.1 % (15-50); MCH 31.1 pg (26.0-34.0); MCHC 32.4 g/dL (31.0-37.0); MEAN PLATELET VOLUME 9.6 fL (7.4-10.4); MONOCYTES 29.5 % (2-11); NEUTROPHILS 26.8 % (40-80); RBC 3.25 10x6/uL (4.00-5.40); RDW 17.6 % (11.5-14.5); WBC 5.2 10x3/uL (4.8-10.8)
[2019-03-25 06:33] LABS: PLATELET COUNT 223 10x3/uL (130-400)
[2019-03-25 07:43] VITALS: BP 118/41
--- NOTE | 2019-03-25 08:26 | NUR ---
ATE ALL OF BREAKFAST. DENIES NEEDS. UP TO BR WITH ONE PERSON ASSIST AND RW. LUNGS WITH FAINT CRACKLES AND WHEEZES THROUGHOUT, OCCASSIONAL DRY COUGH NOTED. SKIN IS INTACT WITHOUT REDNESS, 1-2 PLUS EDEMA NOTED TO BILATERAL LOWER EXTREMETIES. WILL MONITOR. LEFT PORT PATENT WITHOUT REDNESS AT INSERTION SITE. DENIES NEEDS.
--- NOTE | 2019-03-25 10:08 | NUR ---
UP TO BR WITH MIN ASSIST OF ONE. VOIDED WITHOUT DIFFICULTY. REPOSITIONED IN BED FOR COMFORT. DENIES NEEDS.
--- NOTE | 2019-03-25 11:53 | NUR ---
FSBS 102. NO COVERAGE REQUIRED. UP IN CHIAR AT BEDSIDE AFTER AMBULATING 50 FEET WITH THERAPY.
[2019-03-25 12:26] VITALS: BP 155/59
--- NOTE | 2019-03-25 14:02 | NUR ---
UP TO BR WITH ONE PERSON ASSIST. VOIDED WITHOUT DIFFICULTY. SKIN CARE PER SELF. REPOSITIONED IN BED FOR COMFORT. REQUESTED AND GIVEN ONE HYDROCODONE PO FOR C/O LEFT SHOULDER PAIN LEVEL 5. ALSO REQUESTED AND GIVEN 4MG ZOFRAN SLOW IVP SO NOT TO GET SICK. WILL MONITOR.
--- NOTE | 2019-03-25 16:43 | NUR ---
FSBS 168. REFUSED SLIDING SCALE INSULIN AT THIS TIME. WILL MONITOR. UP TO BATHROOM WITH ONE PERSON MIN ASSIST. VOIDED WITHOUT DIFFICULTY.
--- NOTE | 2019-03-25 17:22 | MORECARE ---
CASE MANAGEMENT DISCHARGE SUMMARY PATIENT: NIKKI MARTIN UNIT: [id number] ADM DATE: 03/19/19 AGE: 73 : 43 SEX: F ROOM/BED: D.1208 AUTHOR: BRAVODOC PHYSICIAN: REFERRING PHYSICIAN: LASHAUN CROWLEY MD DATE OF SERVICE: 03/25/19 Discharge Plan Patient Name: NIKKI MARTIN Facility: [facility]:[place] : 1945 Planned Disposition: Home with Home Health Anticipated Discharge Date: Discharge Date: Expected LOS: Initial Reviewer: [email or web address] Initial Review Date: 03/25/2019 Generated: 03/25/19 6:21 pm Comments DCP- Discharge Planning Updated by [email or web address]: Whit Mabry on 03/25/19 4:[address] Patient Name: NIKKI MARTIN Admission Status: ER Accout number: [id number] Admission Date: 03-19-2019 : 1945 Admission Diagnosis: Attending: LASHAUN CROWLEY Current LOS: 6 Anticipated DC Date: Planned Disposition: Home with Home Health Primary Insurance: MEDICARE A & B Discharge Planning Comments: CM met with patient to complete initial dc planning assessment. CM educated patient on the CM role and verbal consent given by patient to complete assessment. Patient lives at home with her where she is independent with her care. At discharge patient plans to return home and feels this is a safe discharge. CM discussed availability of home health, rehab services, and medical equipment. Patient has walker and a BSC. Patient states she has been undergoing Chemo @ [facility] for Multiple Myeloma. Patient states that she has Home Health with [facility] and wants to resume care upon discharge. Patient states she would like PT with [facility] also. ADRIANNE signed. Patient denied known discharge needs at this time. CM will continue to follow and will assist as needed with dc plans/needs. Construction Trades Teacher: Whit Mabry DCPIA - Discharge Planning Initial Assessment Updated by [email or web address]: Whit Mabry on 03/25/19 5:15 pm * Is the patient Alert and Oriented? Yes * How many steps to enter\exit or inside your home? * PCP CARLINE * Pharmacy [facility] * Preadmission Environment Home with Family * ADLs Independent * Other Equipment BSC, WALKER * List name and contact numbers for known caregivers / representatives who currently or will assist patient after discharge: CHLOE MARTIN JR [phone] * Verbal permission to speak to the caregivers and representatives has been obtained from the patient. Yes * Community resources currently utilized None * Additional services required to return to the preadmission environment? No * Can the patient safely return to the preadmission environment? Yes * Has this patient been hospitalized within the prior 30 days at any hospital? No Patient Name: NIKKI MARTIN Page [phone] at 1722 All edits/amendments must be made on the electronic document DICTATION DATE: 03/25/191720 LAMINATE FLOOR INSTALLER: NAZARIO 03/25/191720 RPT#: [id number] DC DATE: STATUS: ADM IN [facility] [address] [place] [address] END OF REPORT
[2019-03-25 17:28] VITALS: BP 151/65
--- NOTE | 2019-03-25 18:40 | NUR ---
RESTING QUIETLY IN BED. DENIES NEEDS. NO CHANGES NOTED.
--- NOTE | 2019-03-25 19:22 | NUR ---
PATIENT RESTING IN BED WITH NO S/S OF DISTRESS AND GUESTS AT BEDSIDE. PATIENT DENIES NEEDS AT THIS TIME. FLUSHED PATIENT'S PORT. BED IN LOWEST POSITION AND CALL LIGHT WITHIN REACH. ENCOURAGED THE PATIENT TO CALL IF SHE HAS NEEDS. WILL CONTINUE TO MONITOR.
[2019-03-25 19:55] VITALS: BP 124/80
--- NOTE | 2019-03-25 19:57 | NUR ---
OT NOTE: PT COMPLETED BED MOB WITH SBA. PT COMPLETED EOB SITTING WITH SPV. PT COMPLETED FM TASKS WITH MODERATE DIFFICULTY SECONDARY TO DECREASED SENSATION AND COORDINATION. PT COMPLETED HYGIENE TASKS WITH SET UP. [phone] THANK YOU, STEFANY ONOFRE
[2019-03-26 00:19] VITALS: BP 134/65
[2019-03-26 04:22] VITALS: BP 151/58
--- NOTE | 2019-03-26 07:43 | NUR ---
AWAKE AND ALERT. ORIENTED X3. SITTING UP ON SIDE OF BED EATING BREAKFAST. LUNGS HAVE FAINT CRACKLES AND WHEEZES THROUGHOUT, OCCASSIONALLY PRODUCTIVE COUGH NOTED. SKIN IS INTACT WTIHOUT REDNESS. 1-2 PLUS EDEMA NOTED TO BILATERAL LOWER EXTREMETIES. LEFT PORT PATENT WITHOUT REDNESS AT INSERTION SITE. DENIES NEEDS.
[2019-03-26 08:06] VITALS: BP 169/71
--- NOTE | 2019-03-26 10:18 | NUR ---
ATE MOST OF BREAKFAST. TOOK AM MEDS WITHOUT DIFFICUTLY. DENIES NEEDS.
[2019-03-26 11:10] LABS: FUNGUS MYCOLOGY CULTURE Preliminary report (())
--- NOTE | 2019-03-26 11:45 | NUR ---
BLLOD DRAWN FROM PORT USING ASEPTIC TECHNIQUE. WAS C/O ITCHING AROUND PORT EARLIER SO DRESSING CHANGED AT THIS TIME. STATED IT FEELS MUCH BETTER NOW. WILL MONITOR.
--- NOTE | 2019-03-26 11:47 | NUR ---
FSBS 118. NO COVERAGE REQUIRED.
[2019-03-26 12:12] VITALS: BP 163/73
--- NOTE | 2019-03-26 14:58 | NUR ---
Nutrition Follow-up: Diet: Neutropenic + Glucerna with meals PO intake: ~75% average x last 7 meals No BM recorded since admit x 7 days now. WT: 165.8# (03/24/19- wt source not recorded); Admit WT: 172# (03/19/19- stated) Meds noted: foranex/lactobacillus, SSI, reglan Labs noted: POC Glu 103, Na 146, GFR 31 Recommend continue current nutrition regimen. RD following.
--- NOTE | 2019-03-26 15:10 | NUR ---
OT NOTE: PERFORMED WELL TODAY. PT REPORTED THAT SHE FELT VERY SLEEPY TODAY. PERFORMED BED MOB WITH MIN ASSIST; AMB INTO HALLWAY WITH WALKER AND MIN ASSIST X 55 FT; AMB TO BATHROOM WITH MIN ASSIST; HYGIENE WITH SET UP; CLOTHING MGMT WITH MIN ASSIST. TRANSFERRED TO CHAIR WITH MIN ASSIST. ELEVATED LEGS. SPOKE WITH PT REGARDING DC NEEDS. PT STATED THAT SHE FELT LIKE SHE MAY DO BETTER WITH REHAB.. STATES THAT HER SON FEELS LIKE SHE NEEDS IT BEFORE GOING HOME. IM IN AGREEMENT IF PT QUALIFIES. LILI HONG, OTR/L [phone]
--- NOTE | 2019-03-26 16:11 | NUR ---
AMBULATED IN HALLWAY WITH PT. DID WELL. SAT UP IN CHIAR AT BEDSIDE FOR ALMOST AN HOUR. UP TO BR WITH ONE PERSON MIN ASSIST. VOIDED WITHOUT DIFFICULTY. POSITIONED IN BED FOR COMFORT.
[2019-03-26 17:34] VITALS: BP 157/60
--- NOTE | 2019-03-26 18:35 | NUR ---
ATE ABOUT HALF OF SUPPER TRAY. NO CHANGES NOTED. DENIES NEEDS.
--- NOTE | 2019-03-26 19:30 | NUR ---
PT ALERT AND ORIENTED. SITTING UP IN BED. NO COMPLAINTS. NEUTROPENIC PRECAUTIONS. LEFT PORT PATENT WITH NO REDNESS OR SWELLING AT INSERTION SITE. CRACKLES AND WHEEZING THROUGHOUT LUNGS. 2+ EDEMA BLE. DENIES HAVING ANY PAIN OR NEEDS AT THIS TIME. BED IN LOWEST POSITON. SIDE RAILS UP. CALL LIGHT IN REACH. WILL CONTINUE TO MONITOR.
[2019-03-26 20:59] VITALS: BP 110/50
--- NOTE | 2019-03-26 22:30 | NUR ---
PT ALERT AND ORIENTED X3. SITTING UP IN BED. NO COMPLAINTS. LEFT PORT PATENT WITH NO REDNESS OR SWEELING AT INSERTION SITE.
[2019-03-27] VITALS (7 sets, daily range): BP systolic 110–165; BP diastolic 50–72
--- NOTE | 2019-03-27 00:32 | NUR ---
PT C/O PAIN IN SHOULDER RATED 10/10. PRN MED GIVEN.
--- NOTE | 2019-03-27 04:00 | NUR ---
PATIENT RESTING IN BED WITH EYES CLOSED. NO SIGNS OF DISTRESS. BED IN LOWEST POSITION. SIDE RAILS UP. CALL LIGHT IN REACH. WILL CONTINUE TO MONITOR.
--- NOTE | 2019-03-27 07:10 | NUR ---
REPORT RECEIVED FROM MIXING MACHINE ATTENDANT AND PATIENT CARE ASSUMED. PATIENT LAYING IN BED ON BACK AWAKE, ALERT AND ORIENTED X 4. PATIENT IS STABLE AND VSS. PATIENT DENIES ANY NEEDS OR PAIN. WILL CONTINUE WITH PLAN OF CARE. SR UP X 2 BED IN LOW POSITION AND CALL LIGHT IN REACH.
--- NOTE | 2019-03-27 10:50 | NUR ---
PATIENT UP AMBULATING IN HW WITH PT. PATIENT AND PT PERSONNEL ARE WEARING ALL ISOLATION PROTECTION. PATIENT TOLERATED WELL AND NOT SITTING IN BS CHAIR. PAITENT IS STABLE . DENIES ANY NEEDS OR PAIN. WILL CONTINUE TO MONITOR. CALL LIGHT IN PTS LAP.
--- NOTE | 2019-03-27 15:56 | NUR ---
PATIENT IS STABLE AND VSS. PATIENT DENIES ANY NEEEDS OR PAIN. MED 3 UNIT IS BEING CLOSED. TRANSFERRING PATIENT TO MED 2 ROOM 2135. PATIENT TO 2135 VIA WC ACCOMPANIED BY HOSPITAL STAFF.
--- NOTE | 2019-03-27 16:16 | NUR ---
OT NOTE: PT COMPLETED BUE AROM EXS AT CHAIR LEVEL. PT COMPLETED HYGIENE TASK WITH SET UP. PT COMPLETED ADL MOB WITH CGA. PT STATED SHE IS FEELING MUCH STRONGER TODAY. [phone] THANK YOU,STEFANY ONOFRE
--- NOTE | 2019-03-27 16:49 | NUR ---
WRITTEN TEXT SENT TO DR ROSADO TO SEE IF PATIENT CAN COME OUT OF ISOLATION WITH WBC 5.2 AND PLATELETS 223. AWAITING RESPONSE. THIS WAS A TRANSFER FROM [facility].
--- NOTE | 2019-03-27 19:35 | NUR ---
EVENING ROUNDS COMPLETED. VSS, AAOX3, APPEARS LETHARGIC. L.CHEST INFUSAPORT DRESSING C/D/I. NEUTROPENIC ISOLATION INTACT. WALKER AT BEDSIDE. PT DENIES ANY FURTHER NEEDS AT THIS TIME. WILL CPOC. CL WITHIN REACH.
[2019-03-28] VITALS (7 sets, daily range): BP systolic 123–162; BP diastolic 48–84
--- NOTE | 2019-03-28 07:23 | NUR ---
REPORT RECEIVED. WILL CONTINUE WITH POC. PT CURRENTLY LYING ON RIGHT SIDE ASLEEP WITH EYES CLOSED AT THIS TIME. RR EVEN AND UNLABORED ON 2L 02. NS INFUSING @KVO VIA L.CHEST PORT. CALL LIGHT W/I REACH. NO S/S OF DISTRESS NOTED. WILL CTM. NEUTROPENIC PRECAUTIONS IN PLACE.
--- NOTE | 2019-03-28 09:52 | MORECARE ---
CASE MANAGEMENT DISCHARGE SUMMARY PATIENT: NIKKI MARTIN UNIT: [id number] ADM DATE: 03/19/19 AGE: 73 : 43 SEX: F ROOM/BED: D.4256 AUTHOR: BRAVO,DOC PHYSICIAN: REFERRING PHYSICIAN: LASHAUN CROWLEY MD DATE OF SERVICE: 03/28/19 Discharge Plan Patient Name: NIKKI MARTIN Facility: [facility]:[place] : 1945 Planned Disposition: Home with Home Health Anticipated Discharge Date: Discharge Date: Expected LOS: Initial Reviewer: [email or web address] Initial Review Date: 03/25/2019 Generated: 03/28/19 10:51 am DCP- Discharge Planning Updated by [email or web address]: Whit Mabry on 03/25/19 4:[address] Patient Name: NIKKI MARTIN Admission Status: ER Accout number: [id number] Admission Date: 03-19-2019 : 1945 Admission Diagnosis: Attending: LASHAUN CROWLEY Current LOS: 6 Anticipated DC Date: Planned Disposition: Home with Home Health Primary Insurance: MEDICARE A & B Discharge Planning Comments: CM met with patient to complete initial dc planning assessment. CM educated patient on the CM role and verbal consent given by patient to complete assessment. Patient lives at home with her where she is independent with her care. At discharge patient plans to return home and feels this is a safe discharge. CM discussed availability of home health, rehab services, and medical equipment. Patient has walker and a BSC. Patient states she has been undergoing Chemo @ [facility] for Multiple Myeloma. Patient states that she has Home Health with [facility] and wants to resume care upon discharge. Patient states she would like PT with [facility] also. ADRIANNE signed. Patient denied known discharge needs at this time. CM will continue to follow and will assist as needed with dc plans/needs. Tree Tapping Laborer: Whit Mabry DCPIA - Discharge Planning Initial Assessment Updated by [email or web address]: Whit Mabry on 03/25/19 5:15 pm * Is the patient Alert and Oriented? Yes * How many steps to enter\exit or inside your home? * PCP CARLINE * Pharmacy [facility] * Preadmission Environment Home with Family * ADLs Independent * Other Equipment BSC, WALKER * List name and contact numbers for known caregivers / representatives who currently or will assist patient after discharge: CHLOE MARTIN JR -[phone] * Verbal permission to speak to the caregivers and representatives has been obtained from the patient. Yes * Community resources currently utilized None * Additional services required to return to the preadmission environment? No * Can the patient safely return to the preadmission environment? Yes * Has this patient been hospitalized within the prior 30 days at any hospital? No External Providers External Provider: [facility] Contact Date: 03/28/2019 Service Request Date: Service Type: Resolution: Reviewer: Comments: Last DP export: 03/25/19 4:22 p Patient Name: NIKKI MARTIN Page [phone] at 0952 All edits/amendments must be made on the electronic document DICTATION DATE: 03/28/19950 DIETARY AIDE: NAZARIO 03/28/19950 RPT#: [id number] DC DATE: STATUS: ADM IN [facility] [address] [place] [address] END OF REPORT
--- NOTE | 2019-03-28 10:05 | MORECARE ---
CASE MANAGEMENT DISCHARGE SUMMARY PATIENT: NIKKI MARTIN UNIT: [id number] ADM DATE: 03/19/19 AGE: 73 : 43 SEX: F ROOM/BED: D.3504 AUTHOR: АНДРЕЙ CORDON PHYSICIAN: REFERRING PHYSICIAN: LASHAUN CROWLEY MD DATE OF SERVICE: 03/28/19 Discharge Plan Patient Name: NIKKI MARTIN Facility: [facility]:[place] : 1945 Planned Disposition: Inpatient Rehab Anticipated Discharge Date: 03/28/19 Discharge Date: Expected LOS: 9 Initial Reviewer: [email or web address] Initial Review Date: 03/25/2019 Generated: 03/28/19 11:04 am DCP- Discharge Planning Updated by [email or web address]: Whit Mabry on 03/25/19 4:[address] Patient Name: NIKKI MARTIN Admission Status: ER Accout number: [id number] Admission Date: 03-19-2019 : 1945 Admission Diagnosis: Attending: LASHAUN CROWLEY Current LOS: 6 Anticipated DC Date: Planned Disposition: Home with Home Health Primary Insurance: MEDICARE A & B Discharge Planning Comments: CM met with patient to complete initial dc planning assessment. CM educated patient on the CM role and verbal consent given by patient to complete assessment. Patient lives at home with her where she is independent with her care. At discharge patient plans to return home and feels this is a safe discharge. CM discussed availability of home health, rehab services, and medical equipment. Patient has walker and a BSC. Patient states she has been undergoing Chemo @ [facility] for Multiple Myeloma. Patient states that she has Home Health with [facility] and wants to resume care upon discharge. Patient states she would like PT with [facility] also. ADRIANNE signed. Patient denied known discharge needs at this time. CM will continue to follow and will assist as needed with dc plans/needs. [facility] Nurse: Whit Mabry DCPIA - Discharge Planning Initial Assessment Updated by [id number]: Whit Mabry on 03/25/19 5:15 pm * Is the patient Alert and Oriented? Yes * How many steps to enter\exit or inside your home? * PCP CARLINE * Pharmacy [facility] * Preadmission Environment Home with Family * ADLs Independent * Other Equipment BSC, WALKER * List name and contact numbers for known caregivers / representatives who currently or will assist patient after discharge: CHLOE MARTIN JR -[phone] * Verbal permission to speak to the caregivers and representatives has been obtained from the patient. Yes * Community resources currently utilized None * Additional services required to return to the preadmission environment? No * Can the patient safely return to the preadmission environment? Yes * Has this patient been hospitalized within the prior 30 days at any hospital? No Coverage Notice Reviewer: [id number] Hu Notice Issued Date-Time: 03/28/2019 9:45 Notice Type: IM Discharge Notice Notice Delivered To: Patient Relationship to Patient: Professor Of Communication And Writing Name: Delivery Method: HAND - Hand Delivered Barbie Days: Prior Verbal Notification: Recipient Understood Notice: Yes Recipient Signature: Yes Med Rec Note Co-signed by Attending: Coverage Notice Comment: Reviewer: YUDITH Hu Notice Issued Date-Time: 03/28/2019 9:45 Notice Type: Patient Choice Letter Notice Delivered To: Patient Relationship to Patient: Professor Of Communication And Writing Name: Delivery Method: HAND - Hand Delivered Barbie Days: Prior Verbal Notification: Recipient Understood Notice: Yes Recipient Signature: Yes Med Rec Note Co-signed by Attending: Coverage Notice Comment: [facility] Last DP export: 03/28/19 8:52 a Patient Name: NIKKI MARTIN Page [phone] at 1005 All edits/amendments must be made on the electronic document DICTATION DATE: 03/28/19 1004 DIE POLISHER: NAZARIO 03/28/19 1004 RPT#: [id number] DC DATE: STATUS: ADM IN [facility] [address] [place] [address] END OF REPORT
--- NOTE | 2019-03-28 12:05 | NUR ---
I have reviewed this patient and I concur with the Shift Assessment completed by the Licensed Practical Nurse today this shift.
--- NOTE | 2019-03-28 13:55 | NUR ---
Rehab Note- Acute Inpatient Rehab prescreen order received. Spoke with Shania CM- the patient is requesting [facility]. Thank you for this referral! Misa Carr RN Clinical Liaison, [facility] Rehab
--- NOTE | 2019-03-28 16:15 | MORECARE ---
CASE MANAGEMENT DISCHARGE SUMMARY PATIENT: NIKKI MARTIN UNIT: [id number] ADM DATE: 03/19/19 AGE: 73 : 43 SEX: F ROOM/BED: D.4832 AUTHOR: АНДРЕЙ CORDON PHYSICIAN: REFERRING PHYSICIAN: LASHAUN CROWLEY MD DATE OF SERVICE: 03/28/19 Discharge Plan Patient Name: NIKKI MARTIN Facility: [facility]:[place] : 1945 Planned Disposition: Inpatient Rehab Anticipated Discharge Date: 03/29/19 Discharge Date: Expected LOS: 10 Initial Reviewer: [id number] Initial Review Date: 03/25/2019 Generated: 03/28/19 5:15 pm Comments DCP- Discharge Planning Updated by [email or web address]: Mauricio Hu on 03/28/19 3:[address] Patient Name: NIKKI MARTIN Encounter No: [id number] : 1945 Primary Insurance: MEDICARE A & B Anticipated DC Date: 03-29-2019 Planned Disposition: Inpatient Rehab External Planned Provider: [facility] DCP follow-up note: CM RECEIVED CALL FROM [facility], THEY WILL ACCEPT PT FOR REHAB. CM NOTIFIED PT WHO IS IN AGREEMENT WITH PLAN. CM CALLED AND SPOKE TO DR. LOU'S NURSE DR. CROWLEY IS NOT IN THIS AFTERNOON, WAS ADVISED THAT PT WILL NEED TO COMPLETE IV ANTIBIOTICS TODAY. CM NOTIFIED [facility], THEY WILL ACCEPT WHEN READY FOR DISCHARGE. FOR DISCHARGE, NOTIFY [facility] AT [phone], CM FAX DISCHARGE INFORMATION AND CURRENT MAR TO [facility] AT [phone]. [facility] WILL PROVIDE NUMBER FOR NURSE REPORT AND ARRANGE TRANSPORTATION. STEFFEN Patel DCP- Discharge Planning Updated by [id number]: Whit Mabry on 03/25/19 4:[address] Patient Name: NIKKI MARTIN Admission Status: ER Accout number: [id number] Admission Date: 03-19-2019 : 1945 Admission Diagnosis: Attending: LASHAUN CROWLEY Current LOS: 6 Anticipated DC Date: Planned Disposition: Home with Home Health Primary Insurance: MEDICARE A & B Discharge Planning Comments: CM met with patient to complete initial dc planning assessment. CM educated patient on the CM role and verbal consent given by patient to complete assessment. Patient lives at home with her where she is independent with her care. At discharge patient plans to return home and feels this is a safe discharge. CM discussed availability of home health, rehab services, and medical equipment. Patient has walker and a BSC. Patient states she has been undergoing Chemo @ [facility] for Multiple Myeloma. Patient states that she has Home Health with [facility] and wants to resume care upon discharge. Patient states she would like PT with [facility] also. ADRIANNE signed. Patient denied known discharge needs at this time. CM will continue to follow and will assist as needed with dc plans/needs. Installation Drafter: Whit Mabry DCPIA - Discharge Planning Initial Assessment Updated by [id number]: Whit Mabry on 03/25/19 5:15 pm * Is the patient Alert and Oriented? Yes * How many steps to enter\exit or inside your home? * PCP CARLINE * Pharmacy [facility] * Preadmission Environment Home with Family * ADLs Independent * Other Equipment BSC, WALKER * List name and contact numbers for known caregivers / representatives who currently or will assist patient after discharge: CHLOE MARTIN JR -[phone] * Verbal permission to speak to the caregivers and representatives has been obtained from the patient. Yes * Community resources currently utilized None * Additional services required to return to the preadmission environment? No * Can the patient safely return to the preadmission environment? Yes * Has this patient been hospitalized within the prior 30 days at any hospital? No Coverage Notice Reviewer: [id number] Hu Notice Issued Date-Time: 03/28/2019 9:45 Notice Type: IM Discharge Notice Notice Delivered To: Patient Relationship to Patient: Hand Almond Blancher Name: Delivery Method: HAND - Hand Delivered Barbie Days: Prior Verbal Notification: Recipient Understood Notice: Yes Recipient Signature: Yes Med Rec Note Co-signed by Attending: Coverage Notice Comment: Reviewer: [id number] Hu Notice Issued Date-Time: 03/28/2019 9:45 Notice Type: Patient Choice Letter Notice Delivered To: Patient Relationship to Patient: Hand Almond Blancher Name: Delivery Method: HAND - Hand Delivered Barbie Days: Prior Verbal Notification: Recipient Understood Notice: Yes Recipient Signature: Yes Med Rec Note Co-signed by Attending: Coverage Notice Comment: [facility] Last DP export: 03/28/19 9:05 a Patient Name: NIKKI MARTIN Page [phone] at 1615 All edits/amendments must be made on the electronic document DICTATION DATE: 03/28/191614 STAFFING ADMINISTRATOR: NAZARIO 03/28/191614 RPT#: [id number] DC DATE: STATUS: ADM IN [facility] [address] [place] [address] END OF REPORT
--- NOTE | 2019-03-28 18:30 | NUR ---
OT NOTE: PT COMPLETED ADL MOB WITH CGA. PT COMPLETED TOILETING WITH SBA. PT COMPLETED SIT TO STAND WITH SBA. [id number] THANK YOU,STEFANY ONOFRE
--- NOTE | 2019-03-28 19:26 | NUR ---
IN BED WITH TELEVISION ON, PLEASANT MOOD AND AFFECT. ABLE TO VOICE ALL NEEDS. DENIES PAIN AT THIS TIME. SHOWS NO S/S OF ANY ACUTE DISTRESS. IV TO LEFT CX INFUSAPORT IS PATENT WITH NORMAL SALINE AT KVO. WILL NOTE ANY CHANGE. REMAINS ON NEUTROPENIC PRECAUTIONS.
[2019-03-28] MEDS ORDERED: VIBRAMYCIN 100100 MG PO (21:36)
--- NOTE | 2019-03-29 00:30 | NUR ---
at 2326, REQUESTED PAIN MEDS, GIVEN PER MAR. WILL NOTE ANY CHANGE.
[2019-03-29 01:00] VITALS: BP 138/66
--- NOTE | 2019-03-29 03:24 | NUR ---
I have reviewed this patient and I concur with the Shift Assessment completed by the Licensed Practical Nurse today this shift.
[2019-03-29 05:43] VITALS: BP 177/74
[2019-03-29 08:00] VITALS: BP 173/69
--- NOTE | 2019-03-29 09:35 | MORECARE ---
CASE MANAGEMENT DISCHARGE SUMMARY PATIENT: NIKKI MARTIN UNIT: [id number] ADM DATE: 03/19/19 AGE: 73 : 43 SEX: F ROOM/BED: D.9759 AUTHOR: АНДРЕЙ CORDON PHYSICIAN: REFERRING PHYSICIAN: LASHAUN CROWLEY MD DATE OF SERVICE: 03/29/19 Discharge Plan Patient Name: NIKKI MARTIN Facility: [facility]:[place] : 1945 Planned Disposition: Inpatient Rehab Anticipated Discharge Date: 03/29/19 Discharge Date: Expected LOS: 10 Initial Reviewer: [email or web address] Initial Review Date: 03/25/2019 Generated: 03/29/19 10:35 am Comments DCP- Discharge Planning Updated by [email or web address]: Mauricio Hu on 03/29/19 8:[address] Patient Name: NIKKI MARTIN Encounter No: [id number] : 1945 Primary Insurance: MEDICARE A & B Anticipated DC Date: 03-29-2019 Planned Disposition: Inpatient Rehab External Planned Provider: [facility] DCP follow-up note: CM RECEIVED DISCHARGE, NOTIFIED [facility] AT [phone], CM FAXED DISCHARGE INFORMATION AND CURRENT MAR TO [facility] AT [phone]. [facility] WILL CALL AND PROVIDE NUMBER FOR NURSE REPORT AND ARRANGE TRANSPORTATION. Mauricio Hu CASE MANAGEMENT DCP- Discharge Planning Updated by [email or web address]: Mauricio Hu on 03/28/19 3:[address] Patient Name: NIKKI MARTIN Encounter No: [id number] : 1945 Primary Insurance: MEDICARE A & B Anticipated DC Date: 03-29-2019 Planned Disposition: Inpatient Rehab External Planned Provider: [facility] DCP follow-up note: CM RECEIVED CALL FROM [facility], THEY WILL ACCEPT PT FOR REHAB. CM NOTIFIED PT WHO IS IN AGREEMENT WITH PLAN. CM CALLED AND SPOKE TO DR. LOU'S NURSE DR. CROWLEY IS NOT IN THIS AFTERNOON, WAS ADVISED THAT PT WILL NEED TO COMPLETE IV ANTIBIOTICS TODAY. CM NOTIFIED [facility], THEY WILL ACCEPT WHEN READY FOR DISCHARGE. FOR DISCHARGE, NOTIFY [facility] AT [phone], CM FAX DISCHARGE INFORMATION AND CURRENT MAR TO [facility] AT [phone]. [facility] WILL PROVIDE NUMBER FOR NURSE REPORT AND ARRANGE TRANSPORTATION. Mauricio Hu, CASE MANAGEMENT DCP- Discharge Planning Updated by [email or web address]: Whit Mabry on 03/25/19 4:[address] Patient Name: NIKKI MARTIN Admission Status: ER Accout number: [id number] Admission Date: 03-19-2019 : 1945 Admission Diagnosis: Attending: LASHAUN CROWLEY Current LOS: 6 Anticipated DC Date: Planned Disposition: Home with Home Health Primary Insurance: MEDICARE A & B Discharge Planning Comments: CM met with patient to complete initial dc planning assessment. CM educated patient on the CM role and verbal consent given by patient to complete assessment. Patient lives at home with her where she is independent with her care. At discharge patient plans to return home and feels this is a safe discharge. CM discussed availability of home health, rehab services, and medical equipment. Patient has walker and a BSC. Patient states she has been undergoing Chemo @ [facility] for Multiple Myeloma. Patient states that she has Home Health with [facility] and wants to resume care upon discharge. Patient states she would like PT with [facility] also. ADRIANNE signed. Patient denied known discharge needs at this time. CM will continue to follow and will assist as needed with dc plans/needs. Director Medical: Whit Mabry DCPIA - Discharge Planning Initial Assessment Updated by [id number]: Whit Mabry on 03/25/19 5:15 pm * Is the patient Alert and Oriented? Yes * How many steps to enter\exit or inside your home? * PCP CARLINE * Pharmacy [facility] * Preadmission Environment Home with Family * ADLs Independent * Other Equipment BSC, WALKER * List name and contact numbers for known caregivers / representatives who currently or will assist patient after discharge: CHLOE MARTIN JR -[phone] * Verbal permission to speak to the caregivers and representatives has been obtained from the patient. Yes * Community resources currently utilized None * Additional services required to return to the preadmission environment? No * Can the patient safely return to the preadmission environment? Yes * Has this patient been hospitalized within the prior 30 days at any hospital? No Coverage Notice Reviewer: [email or web address] Hu Notice Issued Date-Time: 03/28/2019 9:45 Notice Type: IM Discharge Notice Notice Delivered To: Patient Relationship to Patient: Marine Firer Name: Delivery Method: HAND - Hand Delivered Barbie Days: Prior Verbal Notification: Recipient Understood Notice: Yes Recipient Signature: Yes Med Rec Note Co-signed by Attending: Coverage Notice Comment: Reviewer: YUDITH Hu Notice Issued Date-Time: 03/28/2019 9:45 Notice Type: Patient Choice Letter Notice Delivered To: Patient Relationship to Patient: Marine Firer Name: Delivery Method: HAND - Hand Delivered Barbie Days: Prior Verbal Notification: Recipient Understood Notice: Yes Recipient Signature: Yes Med Rec Note Co-signed by Attending: Coverage Notice Comment: [facility] Last DP export: 03/28/19 3:15 p Patient Name: NIKKI MARTIN Page 25455 at 0935 All edits/amendments must be made on the electronic document DICTATION DATE: 03/29/19933 CARBON ACCOUNTANT: NAZARIO 03/29/19933 RPT#: [id number] DC DATE: STATUS: ADM IN [facility] [address] [place] [address] END OF REPORT
--- NOTE | 2019-03-29 10:03 | MORECARE ---
CASE MANAGEMENT DISCHARGE SUMMARY PATIENT: NIKKI MARTIN UNIT: [id number] ADM DATE: 03/19/19 AGE: 73 : 43 SEX: F ROOM/BED: D.3022 AUTHOR: АНДРЕЙ CORDON PHYSICIAN: REFERRING PHYSICIAN: LASHAUN CROWLEY MD DATE OF SERVICE: 03/29/19 Discharge Plan Patient Name: NIKKI MARTIN Facility: [facility]:[place] : 1945 Planned Disposition: Inpatient Rehab Anticipated Discharge Date: 03/29/19 Discharge Date: Expected LOS: 10 Initial Reviewer: [email or web address] Initial Review Date: 03/25/2019 Generated: 03/29/19 11:03 am Comments DCP- Discharge Planning Updated by [email or web address]: Mauricio Hu on 03/29/19 9:[address] Patient Name: NIKKI MARTIN Encounter No: [id number] : 1945 Primary Insurance: MEDICARE A & B Anticipated DC Date: 03-29-2019 Planned Disposition: Inpatient Rehab External Planned Provider: [facility] DCP follow-up note: CM RECEIVED DISCHARGE, NOTIFIED [facility] AT [phone], CM FAXED DISCHARGE INFORMATION AND CURRENT MAR TO [facility] AT [phone]. [facility] WILL CALL AND PROVIDE NUMBER FOR NURSE REPORT AND ARRANGE TRANSPORTATION. Mauricio Hu CASE MANAGEMENT Appended by Mauricio Hu on 03/29/2019 10:00 IT ARCHITECTURE ANALYST: CALL RECEIVED FROM [facility], PT WILL ADMIT TO ROOM 107, NURSE REPORT TO BE CALLED TO [phone]. VAN CUFF SETTER IN 30 MINUTES TO 2 HOURS. CERTIFIED SURGICAL FIRST ASSISTANT NURSE NOTIFIED. STEFFEN GODWIN DCP- Discharge Planning Updated by [email or web address]: Mauricio Hu on 03/28/19 3:[address] Patient Name: NIKKI MARTIN Encounter No: [id number] : 1945 Primary Insurance: MEDICARE A & B Anticipated DC Date: 03-29-2019 Planned Disposition: Inpatient Rehab External Planned Provider: [facility] DCP follow-up note: CM RECEIVED CALL FROM [facility], THEY WILL ACCEPT PT FOR REHAB. CM NOTIFIED PT WHO IS IN AGREEMENT WITH PLAN. CM CALLED AND SPOKE TO DR. LOU'S NURSE DR. CROWLEY IS NOT IN THIS AFTERNOON, WAS ADVISED THAT PT WILL NEED TO COMPLETE IV ANTIBIOTICS TODAY. CM NOTIFIED [facility], THEY WILL ACCEPT WHEN READY FOR DISCHARGE. FOR DISCHARGE, NOTIFY [facility] AT [phone], CM FAX DISCHARGE INFORMATION AND CURRENT MAR TO [facility] AT [phone]. [facility] WILL PROVIDE NUMBER FOR NURSE REPORT AND ARRANGE TRANSPORTATION. Mauricio Hu, CASE MANAGEMENT DCP- Discharge Planning Updated by [email or web address]: Whit Mabry on 03/25/19 4:[address] Patient Name: NIKKI MARTIN Admission Status: ER Accout number: [id number] Admission Date: 03-19-2019 : 1945 Admission Diagnosis: Attending: LASHAUN CROWLEY Current LOS: 6 Anticipated DC Date: Planned Disposition: Home with Home Health Primary Insurance: MEDICARE A & B Discharge Planning Comments: CM met with patient to complete initial dc planning assessment. CM educated patient on the CM role and verbal consent given by patient to complete assessment. Patient lives at home with her where she is independent with her care. At discharge patient plans to return home and feels this is a safe discharge. CM discussed availability of home health, rehab services, and medical equipment. Patient has walker and a BSC. Patient states she has been undergoing Chemo @ [facility] for Multiple Myeloma. Patient states that she has Home Health with [facility] and wants to resume care upon discharge. Patient states she would like PT with [facility] also. ADRIANNE signed. Patient denied known discharge needs at this time. CM will continue to follow and will assist as needed with dc plans/needs. Match Marker: Whit Mabry DCPIA - Discharge Planning Initial Assessment Updated by [email or web address]: Whit Mabry on 03/25/19 5:15 pm * Is the patient Alert and Oriented? Yes * How many steps to enter\exit or inside your home? * PCP CARLINE * Pharmacy [facility] * Preadmission Environment Home with Family * ADLs Independent * Other Equipment BSC, WALKER * List name and contact numbers for known caregivers / representatives who currently or will assist patient after discharge: CHLOE MARTIN JR [phone] * Verbal permission to speak to the caregivers and representatives has been obtained from the patient. Yes * Community resources currently utilized None * Additional services required to return to the preadmission environment? No * Can the patient safely return to the preadmission environment? Yes * Has this patient been hospitalized within the prior 30 days at any hospital? No Coverage Notice Reviewer: [email or web address] Hu Notice Issued Date-Time: 03/28/2019 9:45 Notice Type: IM Discharge Notice Notice Delivered To: Patient Relationship to Patient: Bevel Gear Generator Operator Name: Delivery Method: HAND - Hand Delivered Barbie Days: Prior Verbal Notification: Recipient Understood Notice: Yes Recipient Signature: Yes Med Rec Note Co-signed by Attending: Coverage Notice Comment: Reviewer: YUDITH Hu Notice Issued Date-Time: 03/28/2019 9:45 Notice Type: Patient Choice Letter Notice Delivered To: Patient Relationship to Patient: Bevel Gear Generator Operator Name: Delivery Method: HAND - Hand Delivered Barbie Days: Prior Verbal Notification: Recipient Understood Notice: Yes Recipient Signature: Yes Med Rec Note Co-signed by Attending: Coverage Notice Comment: [facility] Last DP export: 03/29/19 8:35 a Patient Name: NIKKI MARTIN Page [phone] at 1003 All edits/amendments must be made on the electronic document DICTATION DATE: 03/29/19 1003 RELEASE ENGINEER: NAZARIO 03/29/19 1003 RPT#: [id number] DC DATE: STATUS: ADM IN [facility] [address] [place] [address] END OF REPORT
--- NOTE | 2019-03-29 19:47 | NUR ---
OT NOTE: PT COMPLETED SUPINE TO SIT WITH MIN A. PT COMPLETED SIT TO STAND WITH CGA/MIN A. PT COMPLETED BUE FM COORDINTION TIP TO TIP EXERCISES. [phone] THANK YOU, STEFANY ONOFRE
--- NOTE | 2019-04-01 09:04 | MORECARE ---
CASE MANAGEMENT DISCHARGE SUMMARY PATIENT: NIKKI MARTIN UNIT: [id number] ADM DATE: 03/19/19 AGE: 73 : 43 SEX: F ROOM/BED: D.3182 AUTHOR: АНДРЕЙ CORDON PHYSICIAN: REFERRING PHYSICIAN: LASHAUN CROWLEY MD DATE OF SERVICE: 04/01/19 Discharge Plan Patient Name: NIKKI MARTIN Facility: [facility]:[place] : 1945 Planned Disposition: Inpatient Rehab Anticipated Discharge Date: 03/29/19 Discharge Date: 03/29/2019 Expected LOS: 10 Initial Reviewer: [email or web address] Initial Review Date: 03/25/2019 Generated: 04/01/19 10:03 am Comments DCP- Discharge Planning Updated by [email or web address]: Mauricio Hu on 03/29/19 9:[address] Patient Name: NIKKI MARTIN Encounter No: [id number] : 1945 Primary Insurance: MEDICARE A & B Anticipated DC Date: 03-29-2019 Planned Disposition: Inpatient Rehab External Planned Provider: [facility] DCP follow-up note: CM RECEIVED DISCHARGE, NOTIFIED [facility] AT [phone], CM FAXED DISCHARGE INFORMATION AND CURRENT MAR TO [facility] AT [phone]. [facility] WILL CALL AND PROVIDE NUMBER FOR NURSE REPORT AND ARRANGE TRANSPORTATION. Mauricio Hu, CASE MANAGEMENT Appended by Mauricio Hu on 03/29/2019 10:00 EXHIBIT CLEANER: CALL RECEIVED FROM [facility], PT WILL ADMIT TO ROOM 107, NURSE REPORT TO BE CALLED TO [phone]. VAN CORE MACHINE TENDER IN 30 MINUTES TO 2 HOURS. PASTE UP WORKER NURSE NOTIFIED. STEFFEN GODWIN DCP- Discharge Planning Updated by [email or web address]: Mauricio Hu on 03/28/19 3:[address] Patient Name: NIKKI MARTIN Encounter No: [id number] : 1945 Primary Insurance: MEDICARE A & B Anticipated DC Date: 03-29-2019 Planned Disposition: Inpatient Rehab External Planned Provider: [facility] DCP follow-up note: CM RECEIVED CALL FROM [facility], THEY WILL ACCEPT PT FOR REHAB. CM NOTIFIED PT WHO IS IN AGREEMENT WITH PLAN. CM CALLED AND SPOKE TO DR. LOU'S NURSE DR. CROWLEY IS NOT IN THIS AFTERNOON, WAS ADVISED THAT PT WILL NEED TO COMPLETE IV ANTIBIOTICS TODAY. CM NOTIFIED [facility], THEY WILL ACCEPT WHEN READY FOR DISCHARGE. FOR DISCHARGE, NOTIFY [facility] AT [phone], CM FAX DISCHARGE INFORMATION AND CURRENT MAR TO [facility] AT [phone]. [facility] WILL PROVIDE NUMBER FOR NURSE REPORT AND ARRANGE TRANSPORTATION. Mauricio Hu, CASE MANAGEMENT DCP- Discharge Planning Updated by [email or web address]: Whit Mabry on 03/25/19 4:[address] Patient Name: NIKKI MARTIN Admission Status: ER Accout number: [id number] Admission Date: 03-19-2019 : 1945 Admission Diagnosis: Attending: LASHAUN CROWLEY Current LOS: 6 Anticipated DC Date: Planned Disposition: Home with Home Health Primary Insurance: MEDICARE A & B Discharge Planning Comments: CM met with patient to complete initial dc planning assessment. CM educated patient on the CM role and verbal consent given by patient to complete assessment. Patient lives at home with her where she is independent with her care. At discharge patient plans to return home and feels this is a safe discharge. CM discussed availability of home health, rehab services, and medical equipment. Patient has walker and a BSC. Patient states she has been undergoing Chemo @ [facility] [[email or web address]] for Multiple Myeloma. Patient states that she has Home Health with [facility] and wants to resume care upon discharge. Patient states she would like PT with [facility] also. ADRIANNE signed. Patient denied known discharge needs at this time. CM will continue to follow and will assist as needed with dc plans/needs. Liaison Engineer: Whit Mabry DCPIA - Discharge Planning Initial Assessment Updated by [email or web address]: Whit Mabry on 03/25/19 5:15 pm * Is the patient Alert and Oriented? Yes * How many steps to enter\exit or inside your home? * PCP CARLIEN * Pharmacy [facility] * Preadmission Environment Home with Family * ADLs Independent * Other Equipment BSC, WALKER * List name and contact numbers for known caregivers / representatives who currently or will assist patient after discharge: CHLOE MARTIN [phone] * Verbal permission to speak to the caregivers and representatives has been obtained from the patient. Yes * Community resources currently utilized None * Additional services required to return to the preadmission environment? No * Can the patient safely return to the preadmission environment? Yes * Has this patient been hospitalized within the prior 30 days at any hospital? No Coverage Notice Reviewer: YUDITH Hu Notice Issued Date-Time: 03/28/2019 9:45 Notice Type: IM Discharge Notice Notice Delivered To: Patient Relationship to Patient: Nurse School Name: Delivery Method: HAND - Hand Delivered Barbie Days: Prior Verbal Notification: Recipient Understood Notice: Yes Recipient Signature: Yes Med Rec Note Co-signed by Attending: Coverage Notice Comment: Reviewer: YUDITH Hu Notice Issued Date-Time: 03/28/2019 9:45 Notice Type: Patient Choice Letter Notice Delivered To: Patient Relationship to Patient: Nurse School Name: Delivery Method: HAND - Hand Delivered Barbie Days: Prior Verbal Notification: Recipient Understood Notice: Yes Recipient Signature: Yes Med Rec Note Co-signed by Attending: Coverage Notice Comment: [facility] Last DP export: 03/29/19 9:03 a Patient Name: NIKKI MARTIN Page [phone] at 0904 All edits/amendments must be made on the electronic document DICTATION DATE: 04/01/19902 READING INSTRUCTOR: NAZARIO 04/01/19902 RPT#: [id number] DC DATE:03/29/19 STATUS: DIS IN [facility] [address] [place] [address] END OF REPORT
[2019-04-08 13:09] LABS: ACID FAST CULTURE Positive (()); ACID FAST SMEAR Negative (())
== END 2019-03-29 11:53 | DRG 177 ==
LOC: D.ER 15:06 → D.M3 17:32 → D.M2 17:32
PROVIDERS: Family Medicine; Internal Medicine Hematology & Oncology; Internal Medicine Pulmonary Disease; ADMIT Family Medicine; ATTEND Family Medicine
PROC: 0BD88ZX Extraction of Left Upper Lobe Bronchus, Via Natural or Artificial Opening Endoscopic, Diagnostic (ICD-10-PCS; 2019-03-21)
PROC: 0B9G8ZX Drainage of Left Upper Lung Lobe, Via Natural or Artificial Opening Endoscopic, Diagnostic (ICD-10-PCS; principal; 2019-03-21 09:00)
DX: J15.212 Pneumonia due to Methicillin resistant Staphylococcus aureus (principal); N17.0 Acute kidney failure with tubular necrosis; J96.01 Acute respiratory failure with hypoxia; I13.0 Hypertensive heart and chronic kidney disease with heart failure and stage 1 through stage 4 chronic kidney disease, or unspecified chronic kidney disease; C90.00 Multiple myeloma not having achieved remission; I50.30 Unspecified diastolic (congestive) heart failure; E86.0 Dehydration; E11.22 Type 2 diabetes mellitus with diabetic chronic kidney disease; N18.3 Chronic kidney disease, stage 3 (moderate); D63.1 Anemia in chronic kidney disease; M25.512 Pain in left shoulder; I50.9 Heart failure, unspecified

== ENCOUNTER 2019-07-24 17:17 | Inpatient (IN) | payer MEDICARE, BC ==
[~2019-07-24] VITALS: Ht 160 cm; Wt 74.8 kg
[~2019-07-24 17:17] MED LIST changes: +VIBRAMYCIN 100100 MG PO
[2019-07-24 17:41] LABS: BASOPHILS 0.2 % (0-2); EOSINOPHILS 1.5 % (0-7); HEMATOCRIT 28.9 % (36.0-48.0); IMMATURE GRANULOCYTES 0.6 % (0-5); LYMPHOCYTES 3.4 % (15-50); MCH 29.1 pg (26.0-34.0); MCHC 31.1 g/dL (31.0-37.0); MCV 93.5 fL (80.0-100.0); MEAN PLATELET VOLUME 9.7 fL (7.4-10.4); MONOCYTES 10.9 % (2-11); NEUTROPHILS 83.4 % (40-80); PLATELET COUNT 189 10x3/uL (130-400); RBC 3.09 10x6/uL (4.00-5.40); RDW 16.3 % (11.5-14.5); WBC 14.3 10x3/uL (4.8-10.8)
[2019-07-24 17:51] LABS: APTT 29.7 SECONDS (22.8-39.4); INR 1.22 (0.85-1.17); PROTIME 15.3 SECONDS (11.6-15.0)
[2019-07-24 18:02] LABS: CALC OSMOLALITY 282 mosm/kg (275-300); CALCIUM 8.2 mg/dL (8.5-10.1); CHLORIDE - SERUM 105 mmol/L (98-107); CREATININE - SERUM 1.5 mg/dL (0.6-1.3); GLUCOSE 132 mg/dL (74-106); POTASSIUM - SERUM 3.5 mmol/L (3.5-5.1); SODIUM 141 mmol/L (136-145); UREA NITROGEN 13 mg/dL (7-18); eGFR NON AFRICAN AMERICAN 36 mL/min (90-120)
[2019-07-24 18:19] LABS: ALBUMIN 2.3 g/dL (3.4-5.0); ALKALINE PHOSPHATASE 170 U/L (30-120); ALT (SGPT) 24 U/L (10-68); BILIRUBIN - TOTAL 0.48 mg/dL (0.2-1.3); CKMB 1.6 U/L (0.0-3.6); CREATINE KINASE 49 UL (21-215); PRO BNP 1596 pg/mL (0-450); PROTEIN - SERUM 5.9 g/dL (6.4-8.2)
[2019-07-24 18:24] LABS: TROPONIN-I < 0.017 ng/mL (0.000-0.060)
--- NOTE | 2019-07-24 18:55 | NUR ---
IN/OUT CATH PERFORMED ON PT. PT TOLERATED WELL. URINE SPECIMEN SENT TO LAB
--- NOTE | 2019-07-24 19:24 | NUR ---
RN ASSISTED PT TO SIT ON SIDE OF BED D/T PT C/O SOB. PT PLACED BACK IN BED, SR UP X2. PT DENIES FURTHER NEEDS.
[2019-07-24 19:38] LABS: BILIRUBIN NEGATIVE (NEGATIVE); GLUCOSE NEGATIVE (NEGATIVE); KETONE NEGATIVE (NEGATIVE); NITRITE POSITIVE (NEGATIVE); UROBILINOGEN NORMAL (NORMAL)
[2019-07-24 19:39] LABS: WHITE CELLS - URINE 25-50 /hpf (NEGATIVE)
[2019-07-24 19:40] LABS: BACTERIA MANY /hpf (NEGATIVE); EPITHELIAL CELLS 0-5 /hpf (0-5); RED CELLS - URINE OCC /hpf (0-5)
[2019-07-24 22:12] VITALS: BP 116/49; BMI 29.2
[2019-07-25] VITALS: BP 121/52
[2019-07-25] MEDS ORDERED: FLOMAX0.4 MG PO (00:37)
[2019-07-25] MEDS ORDERED: FLUTICASONE PRO16 GM NASAL (00:37)
[2019-07-25] MEDS ORDERED: GUAIFENESI100 MG/5 M PO (00:38)
[2019-07-25] MEDS ORDERED: HYDROCODON-ACE1 EAC7 PO (00:40)
[2019-07-25] MEDS ORDERED: METHOCARBAMOL500 MG PO (00:41)
[2019-07-25] MEDS ORDERED: SENNA LAXATIVE8.6 MG PO (00:43)
[2019-07-25] MEDS ORDERED: SYMBICORT 80-10.2 GM INH (00:44)
[2019-07-25] MEDS ORDERED: VENTOLIN HFA [SP8 GM INH (00:46)
[2019-07-25] MEDS ORDERED: ACIDOPHILUS-PE1 EACH PO (00:52)
[2019-07-25] MEDS ORDERED: ZOVIRAX200 MG PO ×2 (00:53→00:55)
[2019-07-25] MEDS ORDERED: NORVASC10 MG PO (00:56)
[2019-07-25] MEDS ORDERED: MERIBIN5 MG IH (01:05)
[2019-07-25] MEDS ORDERED: FAMOTIDINE10 MG PO (01:10)
[2019-07-25] MEDS ORDERED: CHOLECALCIFEROL PO (01:17)
[2019-07-25] MEDS ORDERED: VENELEX OINTMENT TOPICAL (01:22)
[2019-07-25 04:00] VITALS: BP 115/49
[2019-07-25 06:04] LABS: ANION GAP 11.7 mmol/L (8-16); BILIRUBIN - TOTAL 0.25 mg/dL (0.2-1.3); CALCIUM 7.5 mg/dL (8.5-10.1); CARBON DIOXIDE 26.7 mmol/L (21.0-32.0); CREATININE - SERUM 1.5 mg/dL (0.6-1.3); POTASSIUM - SERUM 3.4 mmol/L (3.5-5.1); PROTEIN - SERUM 4.6 g/dL (6.4-8.2)
--- NOTE | 2019-07-25 06:30 | NUR ---
FSBS 56 THIS AM GAVE INSTA GLUCOSE PER PROTOCOL AND 1/2 CARTEN OF 2% MILK. PT WAS ALERT AND TALKING WITH STAFF.
[2019-07-25 06:48] LABS: ALBUMIN 1.7 g/dL (3.4-5.0)
[2019-07-25 07:22] LABS: BASOPHILS 0.3 % (0-2); EOSINOPHILS 3.2 % (0-7); IMMATURE GRANULOCYTES 0.5 % (0-5); LYMPHOCYTES 5.4 % (15-50); MCH 29.5 pg (26.0-34.0); MCHC 30.9 g/dL (31.0-37.0); MCV 95.3 fL (80.0-100.0); MONOCYTES 15.2 % (2-11); NEUTROPHILS 75.4 % (40-80); PLATELET COUNT 176 10x3/uL (130-400); RDW 16.7 % (11.5-14.5)
[2019-07-25 07:24] LABS: HEMATOCRIT 22.3 % (36.0-48.0); RBC 2.34 10x6/uL (4.00-5.40); WBC 7.6 10x3/uL (4.8-10.8)
[2019-07-25 07:25] LABS: HEMOGLOBIN 6.9 g/dL (12-16)
[2019-07-25 08:30] VITALS: BP 136/52
[2019-07-25 11:23] VITALS: BMI 29.2
--- NOTE | 2019-07-25 11:45 | NUR ---
FIRST UNIT OF BLOOD STARTED. IV INTACT. NO COMPLAINTS OR SIGNS OF DISTRESSED. VITAL SIGNS STABLE. CALL LIGHT WITHIN REACH.
[2019-07-25 13:31] VITALS: Ht 160 cm; Wt 74.8 kg
--- NOTE | 2019-07-25 14:00 | NUR ---
PATIENT IV LEAKING. REMOVED WITH CATH TIP INTACT. RESTARTED IN LEFT HAND. 20 G. X 1 STICK. BLOOD RESTARTED. VS STABLE. LAYING ON SIDE WITH SCDS ON AND WORKING. CALL LIGHT WITHIN REACH.
--- NOTE | 2019-07-25 18:45 | NUR ---
PATIENT LAYING IN BED WITH EYES CLOSED RESTING. IV NTACT. BLOOD INFUSING. CALL LIGHT WITHIN REACH.
[2019-07-25 20:00] VITALS: BP 142/63
[2019-07-26] VITALS: BP 146/75
--- NOTE | 2019-07-26 02:23 | NUR ---
I have reviewed this patient and I concur with the Shift Assessment completed by the Licensed Practical Nurse today this shift.
[2019-07-26 04:00] VITALS: BP 119/88
[2019-07-26 06:21] LABS: BASOPHILS 0.2 % (0-2); EOSINOPHILS 0.5 % (0-7); IMMATURE GRANULOCYTES 0.5 % (0-5); LYMPHOCYTES 6.1 % (15-50); MCH 29.4 pg (26.0-34.0); MCHC 31.3 g/dL (31.0-37.0); MCV 93.9 fL (80.0-100.0); MEAN PLATELET VOLUME 10.7 fL (7.4-10.4); MONOCYTES 9.3 % (2-11); NEUTROPHILS 83.4 % (40-80); PLATELET COUNT 146 10x3/uL (130-400); RDW 16.7 % (11.5-14.5)
[2019-07-26 06:22] LABS: HEMATOCRIT 36.7 % (36.0-48.0); HEMOGLOBIN 11.5 g/dL (12-16); RBC 3.91 10x6/uL (4.00-5.40); WBC 12.7 10x3/uL (4.8-10.8)
[2019-07-26 06:40] LABS: CALCIUM 7.4 mg/dL (8.5-10.1); CARBON DIOXIDE 28.2 mmol/L (21.0-32.0); CREATININE - SERUM 1.6 mg/dL (0.6-1.3)
[2019-07-26 06:42] LABS: POTASSIUM - SERUM 4.2 mmol/L (3.5-5.1)
--- NOTE | 2019-07-26 08:19 | HP ---
PATIENT: NIKKI MARTIN MEDICAL RECORD: [id number] ACCOUNT: [id number] LOCATION:D.[facility] : [birth year] ADMISSION DATE: 07/24/19 PCP: No PCP HISTORY AND PHYSICAL EXAMINATION The patient was seen by me on 07/25/2019. HISTORY OF PRESENT ILLNESS: This is a 73-year-old female with a history of multiple myeloma followed by Dr. Szymanski at [facility]. She had recent autologous bone marrow transplant about 4 weeks ago at [facility] and was discharged from there to [facility] on 07/16/2018. She was brought to the ER. On day of admit with increased cough, congestion, shortness of breath. Denied fever, chills or pain. Workup including chest x-ray showed pneumonia, she is admitted. PAST MEDICAL AND SURGICAL HISTORY: Again, she has IgG kappa multiple myeloma. She has type 2 diabetes, hypertension, psoriasis, atrial fibrillation, chronic kidney disease, and history of DVT. PAST SURGICAL HISTORY: Right total hip arthroplasty, hysterectomy, appendectomy, and port placement. ALLERGIES: PENICILLIN AND LISINOPRIL. HOME MEDICATIONS: Include Ventolin HFA p.r.n., Eliquis 2.5 mg twice a day, Venelex 1 application b.i.d., Symbicort 80/4.5 two puffs twice a day, Flexeril 5 t.i.d. p.r.n. muscle spasm or Robaxin 500 mg t.i.d. p.r.n. muscle spasm, Dapsone 100 mg 3 times a week, Flonase nasal spray, Robitussin p.r.n. cough, Nystatin powder p.r.n., amlodipine 10 mg every day, Zovirax 200 mg twice a day, biotin 1 mg daily, Welchol 625 mg 3 twice a day, Pepcid 20 mg once a day, glipizide XL 10 once a day, hydrocodone 5/325 p.r.n. pain. HABITS: No tobacco, alcohol or drugs. SOCIAL HISTORY: She is , retired. REVIEW OF SYSTEMS: GENERAL: She has had some weight loss. HEENT: No particular sinus or allergy problems. RESPIRATORY: She has had multiple bouts with pneumonia. She was last admitted to [facility] in March with pneumonia. CARDIAC: She has atrial fibrillation. GASTROINTESTINAL: She has heartburn. GENITOURINARY: No significant problems there. MUSCULOSKELETAL: She has weakness and muscle spasms and diffuse joint aches and pains. PHYSICAL EXAMINATION: VITAL SIGNS: Temperature 97.7, pulse 102, respirations 16, blood pressure 115/49, O2 sat 98%. GENERAL: She is awake and alert. She does not appear to be in acute distress. She appears fatigued. SKIN: Warm and dry. HEENT: Grossly within normal limits. NECK: Supple. HISTORY AND PHYSICAL [id number] NIKKI MARTIN HEART: Regular rate and rhythm. LUNGS: Fairly clear. ABDOMEN: Soft, flat, nontender. EXTREMITIES: No edema. LABORATORY DATA: CBC with a white count of 7600, hemoglobin 6.9, hematocrit 22.3, platelets 176,000. Basic metabolic panel: Sodium 144, potassium 3.4, chloride 109, CO2 26.7, BUN 15, creatinine 1.5, glucose 48, calcium 7.5. Liver functions were normal. Total protein low at 4.6, albumin low at 1.7. Urinalysis, trace blood, positive nitrite, 2+ leukocyte esterase, 25-50 white blood cells, many bacteria. INR 1.23. Troponin is normal. ProBNP 1596. Chest x-ray with mild patchy airspace disease consistent with pneumonia. ASSESSMENT: 1. Pneumonia. 2. Multiple myeloma with recent autologous bone marrow transplant at [facility]. 3. Urinary tract infection. PLAN: Dr. Szymanski has been consulted. Appreciate all her efforts. We will transfuse blood. We will give IV antibiotics, IV antivirals. Follow up cultures. Further recommendations as warranted. TRANSINT:[id number] Voice Confirmation ID: [id number] DOCUMENT ID: [id number] LASHAUN CROWLEY MD at 0819 CC: [id number] DICTATION DATE: 07/26/19 0049 TILE POWER SHEAR OPERATOR: 07/26/19 0247 ADM IN [facility] [address] [place] [address]
[2019-07-26 08:26] VITALS: BP 128/62
--- NOTE | 2019-07-26 09:28 | NUR ---
ADMINISTERED MEDICATION AT THIS TIME, NO DIFFICULTY. PT UPRIGHT IN BED WATHCING TV, SCD'S ON. ASSESSMENT PERFORMED AT THIS TIME. BED IN LOWEST POSITION, BED RAILS X2 CALL LIGHT WITHIN REACH. WILL CONTINUE TO MONITOR.
--- NOTE | 2019-07-26 10:51 | NUR ---
CALLED DR RIBERA OFFICE ABOUT PATIENT'S HEART RATE IN 120'S, NO TELEMETRY IS ORDERED AND HOME ATENOLOL THAT IS ON HOLD. LIAM SPOKE WITH DR CROWLEY'S NURSE ARIC. ARIC WILL REPROT TO DR CROWLEY AND CALL LIAM BACK
--- NOTE | 2019-07-26 11:41 | NUR ---
ADMINISTERED 2UNITS INSULIN PER SLIDING SCALE FOR SUGAR OF 194.
--- NOTE | 2019-07-26 11:53 | NUR ---
late entry 11:00, PEÑA (DR CROWLEY'S NURSE) CALLED BACK AND NEW ORDERS RECEIVED FOR TELEMETRY AND RESTART HOME ATENOLOL. ANDI PATIENT'S NURSE NOTIFIED OF THE ABOVE
--- NOTE | 2019-07-26 12:09 | NUR ---
DR CROWLEY NURSE CALLED BACK WITH ORDERS TO RESTART ATENOLOL [address] ON TELEMETRY, ORDER PUT IN AND NURSE INFORMED
--- NOTE | 2019-07-26 12:37 | NUR ---
Nutrition follow-up: visited with pt during breakfast; CNC SET UP OPERATOR helping pt with meal set-up. Pt reports poor to fair po intake. Pt requesting cottage cheese with peaches added to lunch menu. RDN ordered. Labs reviewed Wt: 165# RDN following.
[2019-07-26 12:45] VITALS: BP 129/58
--- NOTE | 2019-07-26 13:55 | NUR ---
ADMINISTERED MEDICATION. ATTEMPTED TO FEED PATIENT. SHE TOOK A FEW BITES. STATES SHE WANTS TO GO TO [facility] BECAUSE DR. CROWLEY SAID HE DID NOT KNOW WHAT TO DO WITH HER. WILL CALL DR. CROWLEY AND SPEAK WITH DR. ROSADO. DENIES ANY OTHER NEEDS. WILL CONTINUE TO MONITOR.
--- NOTE | 2019-07-26 15:23 | NUR ---
SPOKE WITH PT SON AT LENGTH ABOUT PT STATUS, HE IS HAPPY WITH THE CARE SHE IS RECEIVING AT [facility].
--- NOTE | 2019-07-26 16:20 | NUR ---
REMOVED IF FROM LEFT HAND DUE TO INFILTRATION, PUT 2X2 AND TAPE OVER SITE. CATHETER TIP INTACT, TOLERATED WELL. ATTEMPTED TO RESTART IV, UNSUCCESSFUL.
[2019-07-26 16:49] VITALS: BP 123/50
--- NOTE | 2019-07-26 17:48 | NUR ---
ANU KWOK IN ROOM ATTEMPTING TO START IV.
--- NOTE | 2019-07-26 17:56 | NUR ---
ANU KWOK UNABLE TO START IV ALSO.
--- NOTE | 2019-07-26 18:12 | NUR ---
IV SITED TO RIGHT UPPER ARM X1 STICK ASEPTIC TECH,20G.
--- NOTE | 2019-07-26 18:15 | NUR ---
ANU GREER START 20 GAUGE IV TO THE RIGHT UPPER ARM.
--- NOTE | 2019-07-26 19:13 | NUR ---
HUNG IV ANTIBIOTICS. RESTING COMFORTABLY IN BED. DENIES ANY NEEDS AT THIS TIME. WILL CONTINUE TO MONITOR.
[2019-07-26 20:00] VITALS: BP 137/81
[2019-07-27] VITALS: BP 132/59
[2019-07-27 04:00] VITALS: BP 134/50
[2019-07-27 04:58] LABS: BASOPHILS 0.2 % (0-2); EOSINOPHILS 3.2 % (0-7); HEMATOCRIT 35.4 % (36.0-48.0); HEMOGLOBIN 11.1 g/dL (12-16); IMMATURE GRANULOCYTES 0.5 % (0-5); LYMPHOCYTES 8.2 % (15-50); MCH 29.4 pg (26.0-34.0); MCHC 31.4 g/dL (31.0-37.0); MCV 93.9 fL (80.0-100.0); MEAN PLATELET VOLUME 9.1 fL (7.4-10.4); MONOCYTES 12.6 % (2-11); NEUTROPHILS 75.3 % (40-80); PLATELET COUNT 119 10x3/uL (130-400); RBC 3.77 10x6/uL (4.00-5.40); RDW 16.2 % (11.5-14.5)
[2019-07-27 05:00] LABS: WBC 8.3 10x3/uL (4.8-10.8)
[2019-07-27 05:07] LABS: ANION GAP 11.1 mmol/L (8-16); CALCIUM 7.1 mg/dL (8.5-10.1); CARBON DIOXIDE 29.8 mmol/L (21.0-32.0); CREATININE - SERUM 1.6 mg/dL (0.6-1.3); POTASSIUM - SERUM 3.9 mmol/L (3.5-5.1)
--- NOTE | 2019-07-27 06:37 | NUR ---
I have reviewed this patient and I concur with the Shift Assessment completed by the Licensed Practical Nurse today this shift.
[2019-07-27 08:00] VITALS: BP 123/51
[2019-07-27 09:11] VITALS: BP 109/49
--- NOTE | 2019-07-27 09:12 | NUR ---
PT LYING ON LEFT SIDE, NC AT 11L HF, IV IN LT FA NS AT 50, STINSON IN PLACE, PT HAS SCABS AND BRUISES ALL OVER, SKIN ON RT LEVY COMING OFF, NO S/SX OF DISTRESS, PT AWAKENS EASILY AND TOOK MEDICATIONS, CL IN REACH, BED IN LOWEST POSITION, CONTINUE WITH PLAN OF CARE
[2019-07-27 13:05] VITALS: BP 108/53
--- NOTE | 2019-07-27 13:06 | NUR ---
PT SON CAME TO NURSES DESK STATING THAT WE ARE NOT GIVING PT GOUT MEDICATION WE SHOULD BE FROM WHAT WAS EXPLAINED TO PT AND SON BY OCCUPATIONAL THERAPIST PER DIEM. EXPLAINED TO PT SON THAT PER ORDERS I AM TO ADMINISTER BID ORDERED AND OFFERED TO GIVE PT PAIN MEDICATION IF PT IS STILL IN PAIN. PT SON STATED HE WAS UNDER THE IMPRESSION AFTER SPEAKING WITH DR VELAZQUEZ THAT AFTER SEVERAL DOSES OF MEDICATION ADMINISTERED THE WAY HE WAS TOLD THAT PT WOULD BE BETTER AND ABLE TO WALK. EXPPLAINED THAT LIKE ANY OTHER MEDICATIONS AND TREATMENT TIME IS NEEDED FOR THE MEDICATION TO WORK. PT SON INSISTED THAT I CALL DR VELAZQUEZ AND GET ORDERS CORRECTED. CALLED DR KRAMER CELL PHONE AND LEFT MESSAGE FOR RETURN CALL.
[2019-07-27 16:26] VITALS: BP 128/54
--- NOTE | 2019-07-27 19:40 | NUR ---
I have reviewed this patient and I concur with the Shift Assessment completed by the Licensed Practical Nurse today this shift.
--- NOTE | 2019-07-27 20:30 | NUR ---
LYING QUEITLY WITH NO DISTRESS NOTED.O2 @ 2L PER NC ON. RESP UNLABORED. SL TO LFA INTACT WITHOUT REDNESS OR EDEMA NOTED. FAMILY AT BEDSIDE. CL IN REACH
[2019-07-28] VITALS: BP 97/55
--- NOTE | 2019-07-28 03:55 | NUR ---
I have reviewed this patient and I concur with the Shift Assessment completed by the Licensed Practical Nurse today this shift.
[2019-07-28 04:00] VITALS: BP 116/59
[2019-07-28 06:10] LABS: BASOPHILS 0.1 % (0-2); EOSINOPHILS 2.9 % (0-7); HEMATOCRIT 33.7 % (36.0-48.0); HEMOGLOBIN 10.4 g/dL (12-16); IMMATURE GRANULOCYTES 0.5 % (0-5); LYMPHOCYTES 3.7 % (15-50); MCH 28.7 pg (26.0-34.0); MCHC 30.9 g/dL (31.0-37.0); MCV 93.1 fL (80.0-100.0); MEAN PLATELET VOLUME 9.7 fL (7.4-10.4); MONOCYTES 10.9 % (2-11); NEUTROPHILS 81.9 % (40-80); RBC 3.62 10x6/uL (4.00-5.40); RDW 16.5 % (11.5-14.5); WBC 8.6 10x3/uL (4.8-10.8)
[2019-07-28 06:19] LABS: PLATELET COUNT 146 10x3/uL (130-400)
[2019-07-28 07:05] LABS: ANION GAP 14.6 mmol/L (8-16); CARBON DIOXIDE 26.3 mmol/L (21.0-32.0); CREATININE - SERUM 1.4 mg/dL (0.6-1.3); POTASSIUM - SERUM 3.9 mmol/L (3.5-5.1)
[2019-07-28 07:16] LABS: CALCIUM 6.9 mg/dL (8.5-10.1)
[2019-07-28 08:00] VITALS: BP 146/70
--- NOTE | 2019-07-28 08:11 | NUR ---
PT SITTING UP IN BED WATCHING TV, ALERT AND ORIENTED. CURRENTLY RCVING 7L VIA NC. IV LOCATED TO LEFT FOREARM. NO CURRENT S/S OF DISTRESS NOTED AT THIS TIME, DENIES NEEDS, WILL CONT TO MONITOR.
--- NOTE | 2019-07-28 13:30 | NUR ---
PT ARRIVED VIA BED. PUREWICK RESUMED. DENIES NEEDS OR PAIN AT THIS TIME. CALL LIGHT WITHIN REACH. BED IN LOWEST POSITION. MONITOR IN PLACE IN ORDER TO SEE PT. WILL CONTINUE TO MONITOR.
--- NOTE | 2019-07-28 18:55 | NUR ---
BEDSIDE REPORT RECEIVED, PT CARE ASSUMED. INTRODUCED SELF AND WROTE NAME ON BOARD. PT LYING IN BED, WATCHING TV. REPOSITIONED FOR COMFORT, DENIES ANY OTHER NEEDS AT THIS TIME. BED IN LOWEST, SRX2, CALL LIGHT WITHIN REACH. WILL CTM.
[2019-07-28 20:00] VITALS: BP 139/55
[2019-07-29] VITALS: BP 138/57
--- NOTE | 2019-07-29 01:01 | NUR ---
SIMON JARA FROM MED 2 THIS SHIFT WITH O S/S OF DISTRESS ON BED. O2 AT 7 LETERS VIA HIGH FLOW N/C. NO S/S OF DISTRESS AT THIS TIME. SHE DID CALL HER SON AND INFROMED HIM THAT SHE HAD CHANGED ROOMS A GAIN AND WHAT HER NEW ROOM NUMBER WAS
[2019-07-29 04:00] VITALS: BP 123/59
[2019-07-29 05:27] LABS: ANION GAP 15.9 mmol/L (8-16); CALCIUM 7.5 mg/dL (8.5-10.1); CARBON DIOXIDE 25.9 mmol/L (21.0-32.0); CREATININE - SERUM 1.5 mg/dL (0.6-1.3); POTASSIUM - SERUM 3.8 mmol/L (3.5-5.1)
[2019-07-29 05:28] LABS: BASOPHILS 0.2 % (0-2); EOSINOPHILS 2.8 % (0-7); HEMATOCRIT 34.6 % (36.0-48.0); HEMOGLOBIN 11.1 g/dL (12-16); IMMATURE GRANULOCYTES 0.5 % (0-5); LYMPHOCYTES 0.8 % (15-50); MCH 29.5 pg (26.0-34.0); MCHC 32.1 g/dL (31.0-37.0); MEAN PLATELET VOLUME 9.7 fL (7.4-10.4); NEUTROPHILS 84.7 % (40-80); PLATELET COUNT 136 10x3/uL (130-400); RBC 3.76 10x6/uL (4.00-5.40); RDW 16.5 % (11.5-14.5); WBC 8.7 10x3/uL (4.8-10.8)
--- NOTE | 2019-07-29 07:43 | NUR ---
PT LYING IN BED, REQUESTED TO BE PULLED UP, HAD RADAR SYSTEMS ENGINEER ASSIST ME IN PULLING PT UP IN BED, BRUISES ON HANDS AND ARMS, PT IV IN LEFT FA SL. HF NC AT 7L. PT REQUESTED TO HAVE PAIN MEDICATION WITH MORNING MEDS. NO OTHER NEEDS VOICED. CONTINUE WITH PLAN OF CARE
[2019-07-29 09:07] VITALS: BP 105/58
--- NOTE | 2019-07-29 09:42 | NUR ---
PT IS VERY CONFUSED TODAY, STATED SHE HAD FAMILY VISIT HER THIS MORNING AND THAT SHE WAS IN A WC AND NOW NEEDS TO GO BACK TO BED, REORIENTED PT BACK TO HOSPITAL ROOM AND ASSURED PT SHE IS IN BED AND NOT STANDING UP, PT STATED SHE MUST BE HAVING A HEART ATTACK. PT C/O NO PAIN OF SOB, CALLED MONITORS AND PT RHYTHMN IS SR 82, PT VERBALIZED UNDERSTANDING AND STATED " OK I WILL JUST GO BACK TO SLEEP SINCE I AM ALREADY IN BED" CL IN REACH CONTINUE WITH PLAN OF CARE
[2019-07-29 12:26] VITALS: BP 131/51
--- NOTE | 2019-07-29 14:20 | NUR ---
PT GRANDSON AT BEDSIDE AND PT WANTED HIM TO SIT HER UP, EXPLAINED TO PT THAT SHE HAS NOT BEEN UP SINCE SHE CAME TO OUR FACILITY AND I WILL GLADLY ASK DR TO ORDER OT AND PT, PT GRANDSON STATED HE WAS ALLOWED TO SIT HER UP A FEW NIGHTS AGO, VIOICED UNDERSTANDING AND CONCERN TO PT GRANDSON, SPOKE TO DR LOU IN REGARDS TO ORDER AND WAS GIVEN THE GO AHEAD AND ORDER FOR PT. NO OTHER NEEDS AT THIS TIME, CONTINUE WITH PLAN OF CARE
[2019-07-29 17:10] VITALS: BP 132/56
--- NOTE | 2019-07-29 18:10 | NUR ---
PT IS MORE CONFUSED THIS EVENING AFTER ADMINISTRATION OF MORPHINE, PT STATED SHE WANTED TO SIT UP IN BED SO SHE DOES NOT ROLL OFF, EXPLAINED TO PT SHE IS IN THE MIDDLE OF THE BED AND SIDE RAILS UP, PT ASKED WHERE THE POSTERS ARE THAT ARE SUPPOSE TO BE IN THE ROOM, EXPLAINED THAT SHE IS IN THE HOSPITAL AND WE DO NOT HAVE POSTERS IN ROOM, PT THEN STATED I LEFT HER HANGING HALF OFF THE BED AND MY FRIENDS AND I JUST LEFT HER. ASSURED PT SHE IS HERE FOR TREATMENT AND IN NO WAY WOULD WE ALLOW HER TO FALL, PT STATED SHE NEEDS TO GET UP AND SHE SIMPLY CAN NOT "JUST LAY HERE" EXPLAINED TO PT THAT IT IS EVENING AND THAT I HAVE ORDERED FOR PT AND OT TO ASSIST GETTING HER UP IN THE MORNING. PT STATED THIS WAS CRUEL PUNISHMENT TO JUST LET HER LAY THERE, OFFERED TO ASSIST PT TO TURN ON HER SIDE FOR A BIT AND PT REFUSED, PAGED RORY FOR ADMITTING DOCTOR. CONTINUE WITH PLAN OF CARE
--- NOTE | 2019-07-29 18:30 | NUR ---
SPOKE TO DR LOU IN REGARDS TO PT CONFUSION. PER DR RODRIGUEZ MORPHINE AND REPLACE WITH NORCO [id number]
--- NOTE | 2019-07-29 18:45 | NUR ---
I have reviewed this patient and I concur with the Shift Assessment completed by the Licensed Practical Nurse today this shift.
[2019-07-29 20:37] VITALS: BP 139/60
--- NOTE | 2019-07-29 23:44 | NUR ---
IV REPLACED 24 MONI TO LEFT WRIST
[2019-07-30 00:50] VITALS: BP 140/66
[2019-07-30 06:23] LABS: BASOPHILS 0.1 % (0-2); EOSINOPHILS 2.1 % (0-7); HEMATOCRIT 33.7 % (36.0-48.0); HEMOGLOBIN 10.8 g/dL (12-16); IMMATURE GRANULOCYTES 0.6 % (0-5); LYMPHOCYTES 3.5 % (15-50); MCH 28.9 pg (26.0-34.0); MCV 90.1 fL (80.0-100.0); MEAN PLATELET VOLUME 10.2 fL (7.4-10.4); MONOCYTES 10.1 % (2-11); NEUTROPHILS 83.6 % (40-80); PLATELET COUNT 147 10x3/uL (130-400); RBC 3.74 10x6/uL (4.00-5.40); RDW 16.4 % (11.5-14.5)
[2019-07-30 06:48] VITALS: BP 135/60
[2019-07-30 06:48] LABS: ANION GAP 17.3 mmol/L (8-16); CALCIUM 8.5 mg/dL (8.5-10.1); CREATININE - SERUM 1.6 mg/dL (0.6-1.3); MAGNESIUM - SERUM 1.3 mg/dL (1.8-2.4); POTASSIUM - SERUM 3.3 mmol/L (3.5-5.1)
[2019-07-30 08:24] VITALS: BP 158/61
--- NOTE | 2019-07-30 08:26 | NUR ---
PT IS STILL CONFUSED THIS MORNING, K+ IS 3.3 AND MAG IS 1.3 [address] REPLETION IN PL[address], WILL CALL DR'S OFFICE FOR ORDERS, ADMINISTER SCHEDULED MEDS WELL PRN MEDS. LUIZ WITH PLAN OF CARE
--- NOTE | 2019-07-30 10:51 | NUR ---
ADMINISTERED PRN MEDICATIONS FOR K+ AND MAG, PT ABLE TO TAKE WITH APPLESAUCE, CL IN REACH CONTINUE WITH PLAN OF CARE
--- NOTE | 2019-07-30 10:56 | NUR ---
Nutrition follow-up: Pt in isolation; very confused per nursing Diet: Regular soft as tolerated PO intake poor due to confusion Labs reviewed Wt: 165# +BM RDN will order Ensure with meals to increase kcal/protein intake. RDN following.
[2019-07-30 12:14] VITALS: BP 134/63
--- NOTE | 2019-07-30 12:26 | NUR ---
I have reviewed this patient and I concur with the Shift Assessment completed by the Licensed Practical Nurse today this shift.
[2019-07-30 16:45] VITALS: BP 148/67
--- NOTE | 2019-07-30 16:50 | NUR ---
OT NOTE: PT COMPLETED BED MOB TASKS WITH MAX A . PT REQUIRED TOTAL A WITH LB HYGIENE TASKS SECONDARY TO BM. NOTED SKIN BREAKDOWN. NOTIFIED NURSING. PT REQUIRED MAX A WITH POSITIONING TO DECREASE PRESSURE AND SKIN BREAKDOWN. [phone] THANK YOU,STEFANY ONOFRE
[2019-07-30 20:57] VITALS: BP 181/62
[2019-07-31 01:00] VITALS: BP 162/60
[2019-07-31 06:18] LABS: BASOPHILS 0.3 % (0-2); EOSINOPHILS 1.6 % (0-7); HEMATOCRIT 32.7 % (36.0-48.0); HEMOGLOBIN 10.5 g/dL (12-16); IMMATURE GRANULOCYTES 0.5 % (0-5); LYMPHOCYTES 3.5 % (15-50); MCH 29.1 pg (26.0-34.0); MCHC 32.1 g/dL (31.0-37.0); MCV 90.6 fL (80.0-100.0); MEAN PLATELET VOLUME 10.1 fL (7.4-10.4); MONOCYTES 9.7 % (2-11); NEUTROPHILS 84.4 % (40-80); PLATELET COUNT 143 10x3/uL (130-400); RBC 3.61 10x6/uL (4.00-5.40); RDW 16.7 % (11.5-14.5); WBC 7.6 10x3/uL (4.8-10.8)
[2019-07-31 06:30] VITALS: BP 145/44
[2019-07-31 06:33] LABS: ANION GAP 13.7 mmol/L (8-16); CALCIUM 8.2 mg/dL (8.5-10.1); CARBON DIOXIDE 26.6 mmol/L (21.0-32.0); CREATININE - SERUM 1.5 mg/dL (0.6-1.3); POTASSIUM - SERUM 4.3 mmol/L (3.5-5.1)
--- NOTE | 2019-07-31 07:20 | NUR ---
REPORT RECEIVED. ON NEUTROPENIC PRECAUTIONS. PT HAS IV TO LEFT WRIST THAT IS SALINE LOCKED. PT IS INCONTINENT AND HAS A PUREWICK IN PLACE. NO COMPLAINTS OR NEEDS AT THIS TIME.
[2019-07-31 08:45] VITALS: BP 116/49
--- NOTE | 2019-07-31 08:48 | NUR ---
RESTING IN BED CALL LIGHT IN REACH. PANSANIYA CONTIUES TO YELL FOR STAFF AND CHLOE. WATER GIVEN WITH ROUND BY STAFF.
--- NOTE | 2019-07-31 10:41 | MORECARE ---
CASE MANAGEMENT DISCHARGE SUMMARY PATIENT: NIKKI MARTIN UNIT: [id number] ADM DATE: 07/24/19 AGE: 73 : 43 SEX: F ROOM/BED: D.2216 AUTHOR: АНДРЕЙ CORDON PHYSICIAN: REFERRING PHYSICIAN: LASHAUN CROWLEY MD DATE OF SERVICE: 07/31/19 Discharge Plan Patient Name: NIKKI MARTIN Facility: [facility]:[place] : 1945 Planned Disposition: Inpatient Rehab Anticipated Discharge Date: Discharge Date: Expected LOS: Initial Reviewer: [email or web address] Initial Review Date: 07/24/2019 Generated: 07/31/19 11:41 am DCPIA - Discharge Planning Initial Assessment Updated by [email or web address]: Precious Gutierrez on 07/31/19 10:40 am * Is the patient Alert and Oriented? Yes * How many steps to enter\exit or inside your home? * PCP CARLINE * Pharmacy [facility] * Preadmission Environment Home with Family * ADLs Partial Dependent * Partial ADLs (Assistance needed) Bathing Eating Toileting * Equipment Bedside Commode Elevated Tol[place] Seat Rolling Walker Shower Chair Wheelchair * List name and contact numbers for known caregivers / representatives who currently or will assist patient after discharge: EUGENIO (SPOUSE) [phone] * Verbal permission to speak to the caregivers and representatives has been obtained from the patient. N/A * Community resources currently utilized Home Health * Please name any agencies selected above. [facility] * Additional services required to return to the preadmission environment? Yes * Can the patient safely return to the preadmission environment? No * Has this patient been hospitalized within the prior 30 days at any hospital? Yes Patient Name: NIKKI MARTIN Page [id number] at 1041 All edits/amendments must be made on the electronic document DICTATION DATE: 07/31/19 1041 STORE SALES LEADER: NAZARIO 07/31/19 1041 RPT#: [id number] DC DATE: STATUS: ADM IN [place] [address] [place] [address] END OF REPORT
--- NOTE | 2019-07-31 10:49 | MORECARE ---
CASE MANAGEMENT DISCHARGE SUMMARY PATIENT: NIKKI MARTIN UNIT: [id number] ADM DATE: 07/24/19 AGE: 73 : 43 SEX: F ROOM/BED: D.2216 AUTHOR: АНДРЕЙ CORDON PHYSICIAN: REFERRING PHYSICIAN: LASHAUN CROWLEY MD DATE OF SERVICE: 07/31/19 Discharge Plan Patient Name: NIKKI MARTIN Facility: [facility]:[place] : 1945 Planned Disposition: Inpatient Rehab Anticipated Discharge Date: Discharge Date: Expected LOS: Initial Reviewer: [email or web address] Initial Review Date: 07/24/2019 Generated: 07/31/19 11:48 am Comments DCP- Discharge Planning Updated by [email or web address]: Precious Gutierrez on 07/31/19 9:[address] Patient Name: NIKKI MARTIN Admission Status: ER Accout number: [id number] Admission Date: 07-24-2019 : 1945 Admission Diagnosis:PNEUMONIA, UNSPECIFIED ORGANISM Attending: LASHAUN CROWLEY Current LOS: 7 Anticipated DC Date: Planned Disposition: Inpatient Rehab Primary Insurance: MEDICARE A & B Discharge Planning Comments: CM met with patient to complete initial dc planning assessment. CM educated patient on the CM role and verbal consent given by patient to complete assessment. Patient lives at home with her spouse, son and daughter in law. At discharge patient plans to go to inpatient rehab at [facility] and feels this is a safe discharge. CM discussed availability of home health, rehab services, and medical equipment. She is current with [facility] with OT/ PT. She is happy with them and would like to use them again when she gets home. She has a elevated toilet, bench, walker, wheelchair at home. She stated that she might need help with ADL's now. She was unable to grasp the pen to sign my ADRIANNE paper. A verbal consent was obtained for [facility] & placed on chart. Patient denied known discharge needs at this time. CM will continue to follow and will assist as needed with dc plans/needs. Assistant Professor Of Physics: Precious Gutierrez DCPIA - Discharge Planning Initial Assessment Updated by [id number]: Precious Gutierrez on 07/31/19 10:40 am * Is the patient Alert and Oriented? Yes * How many steps to enter\exit or inside your home? * PCP CARLINE * Pharmacy [facility] [address] * Preadmission Environment Home with Family * ADLs Partial Dependent * Partial ADLs (Assistance needed) Bathing Eating Toileting * Equipment Bedside Commode Elevated [place] Seat Rolling Walker Shower Chair Wheelchair * List name and contact numbers for known caregivers / representatives who currently or will assist patient after discharge: EUGENIO (SPOUSE) [phone] * Verbal permission to speak to the caregivers and representatives has been obtained from the patient. N/A * Community resources currently utilized Home Health * Please name any agencies selected above. [facility] * Additional services required to return to the preadmission environment? Yes * Can the patient safely return to the preadmission environment? No * Has this patient been hospitalized within the prior 30 days at any hospital? Yes Coverage Notice Reviewer: [id number] Markus Gutierrez Notice Issued Date-Time: 07/31/2019 10:30 Notice Type: Patient Choice Letter Notice Delivered To: Patient Relationship to Patient: Lobster Fisherman Name: Delivery Method: - Barbie Days: Prior Verbal Notification: Recipient Understood Notice: Recipient Signature: Med Rec Note Co-signed by Attending: Coverage Notice Comment: Last DP export: 07/31/19 9:41 a Patient Name: NIKKI MARTIN Page [phone] at 1049 All edits/amendments must be made on the electronic document DICTATION DATE: 07/31/19 1048 REFINERY OPERATOR HELPER CRUDE UNIT: NAZARIO 07/31/19 1048 RPT#: [id number] DC DATE: STATUS: ADM IN [facility] [address] [place] [address] END OF REPORT
--- NOTE | 2019-07-31 10:49 | NUR ---
ASSISTED PT WITH MORNING MEDICATIONS. TOOK IN APPLESAUCE. HELPED HER EAT SOME BREAKFAST. ATE ABOUT 25% OF CHEERIOS. NO OTHER NEEDS AT THIS TIME.
[2019-07-31 13:28] VITALS: BP 107/47
--- NOTE | 2019-07-31 15:12 | NUR ---
IN AND OUT CATH FOR URINE CULTURE. PUT OUT 900ML CLEAR YELLOW URINE.
--- NOTE | 2019-07-31 16:58 | NUR ---
OT NOTE: PT COMPLETED SUPINE TO SIT WITH MAX A X2. PT COMPLETED UE AAROM TOLERATED TO REDUCE/MANAGE CONTRACTURE AND SKIN BREAKDOWN. PT REQUIRED TOTAL A WITH POSITIONING TO DECREASE PRESSURE AREAS. PT REQUIRED TOTAL A WITH LB HYGIENE TASKS. [phone] THANK YOU,STEFANY ONOFRE
[2019-07-31 17:14] VITALS: BP 133/55
--- NOTE | 2019-07-31 19:15 | NUR ---
A&O X 4. FAMILY AT BEDSIDE. PT TURNED TO RIGHT SIDE. EXTREMETIES CONTRACTURED. NO S/SX OF DISTRESS, DENIES FURTHER NEEDS, CTM.
[2019-07-31 21:33] VITALS: BP 147/53
[2019-08-01] VITALS (8 sets, daily range): BP systolic 105–163; BP diastolic 59–85
--- NOTE | 2019-08-01 02:12 | NUR ---
I have reviewed this patient and I concur with the Shift Assessment completed by the Licensed Practical Nurse today this shift.
[2019-08-01 06:42] LABS: BASOPHILS 0.1 % (0-2); EOSINOPHILS 2.2 % (0-7); HEMOGLOBIN 10.5 g/dL (12-16); IMMATURE GRANULOCYTES 0.7 % (0-5); LYMPHOCYTES 3.9 % (15-50); MCH 28.8 pg (26.0-34.0); MCHC 31.8 g/dL (31.0-37.0); MCV 90.4 fL (80.0-100.0); MEAN PLATELET VOLUME 9.8 fL (7.4-10.4); MONOCYTES 10.1 % (2-11); PLATELET COUNT 134 10x3/uL (130-400); RBC 3.65 10x6/uL (4.00-5.40); RDW 16.7 % (11.5-14.5); WBC 7.4 10x3/uL (4.8-10.8)
[2019-08-01 07:03] LABS: ANION GAP 12.9 mmol/L (8-16); CALCIUM 8.6 mg/dL (8.5-10.1); CREATININE - SERUM 1.3 mg/dL (0.6-1.3); POTASSIUM - SERUM 3.9 mmol/L (3.5-5.1)
--- NOTE | 2019-08-01 09:00 | NUR ---
ASSESSMENT PER FLOW SHEET. PATIENT IS WITHOUT DISTRESS AT PRESENT.CALL LIGHT IN REACH. NEUTROPENIC ISOLATION.
--- NOTE | 2019-08-01 12:59 | MORECARE ---
CASE MANAGEMENT DISCHARGE SUMMARY PATIENT: NIKKI MARTIN UNIT: [id number] ADM DATE: 07/24/19 AGE: 73 : 43 SEX: F ROOM/BED: D.2216 AUTHOR: АНДРЕЙ CORDON PHYSICIAN: REFERRING PHYSICIAN: LASHAUN CROWLEY MD DATE OF SERVICE: 08/01/19 Discharge Plan Patient Name: NIKKI MARTIN Facility: [facility]:[place] : 1945 Planned Disposition: Inpatient Rehab Anticipated Discharge Date: Discharge Date: Expected LOS: Initial Reviewer: [email or web address] Initial Review Date: 07/24/2019 Generated: 08/01/19 1:58 pm Comments DCP- Discharge Planning Updated by [email or web address]: Shameka Ch on 08/01/19 11:[address] CM faxed Face Sheet and H/P to [facility], Attn: Melina. DCP- Discharge Planning Updated by [email or web address]: Precious Gutierrez on 07/31/19 9:[address] Patient Name: NIKKI MARTIN Admission Status: ER Accout number: [id number] Admission Date: 07-24-2019 : 1945 Admission Diagnosis:PNEUMONIA, UNSPECIFIED ORGANISM Attending: LASHAUN CROWLEY Current LOS: 7 Anticipated DC Date: Planned Disposition: Inpatient Rehab Primary Insurance: MEDICARE A & B Discharge Planning Comments: CM met with patient to complete initial dc planning assessment. CM educated patient on the CM role and verbal consent given by patient to complete assessment. Patient lives at home with her spouse, son and daughter in law. At discharge patient plans to go to inpatient rehab at [facility] and feels this is a safe discharge. CM discussed availability of home health, rehab services, and medical equipment. She is current with [facility] with OT/ PT. She is happy with them and would like to use them again when she gets home. She has a elevated toilet, bench, walker, wheelchair at home. She stated that she might need help with ADL's now. She was unable to grasp the pen to sign my ADRIANNE paper. A verbal consent was obtained for [facility] & placed on chart. Patient denied known discharge needs at this time. CM will continue to follow and will assist as needed with dc plans/needs. Buffet Server: Precious Gutierrez DCPIA - Discharge Planning Initial Assessment Updated by [email or web address]: Precious Gutierrez on 07/31/19 10:40 am * Is the patient Alert and Oriented? Yes * How many steps to enter\exit or inside your home? * PCP CARLINE * Pharmacy [facility] * Preadmission Environment Home with Family * ADLs Partial Dependent * Partial ADLs (Assistance needed) Bathing Eating Toileting * Equipment Bedside Commode Elevated Tol[place] Seat Rolling Walker Shower Chair Wheelchair * List name and contact numbers for known caregivers / representatives who currently or will assist patient after discharge: EUGENIO (SPOUSE) [phone] * Verbal permission to speak to the caregivers and representatives has been obtained from the patient. N/A * Community resources currently utilized Home Health * Please name any agencies selected above. [facility] * Additional services required to return to the preadmission environment? Yes * Can the patient safely return to the preadmission environment? No * Has this patient been hospitalized within the prior 30 days at any hospital? Yes External Providers External Provider: [facility] Next Contact Date: Service Request Date: Service Type: Resolution: Reviewer: Comments: External Provider: [facility] Next Contact Date: Service Request Date: Service Type: Resolution: Reviewer: Comments: Coverage Notice Reviewer: [id number] - Precious Gutierrez Notice Issued Date-Time: 07/31/2019 10:30 Notice Type: Patient Choice Letter Notice Delivered To: Patient Relationship to Patient: International Relations Professor Name: Delivery Method: HAND - Hand Delivered Barbie Days: Prior Verbal Notification: Yes Recipient Understood Notice: Yes Recipient Signature: Med Rec Note Co-signed by Attending: Coverage Notice Comment: ADRIANNE FOR [facility] & CURRENT WITH JOANNE Sebastian DP export: 07/31/19 9:49 a Patient Name: NIKKI MARTIN Page [phone] at 0989 All edits/amendments must be made on the electronic document DICTATION DATE: 08/01/19 1258 NUCLEAR MEDICAL TECHNOLOGIST: NAZARIO 08/01/19 1258 RPT#: [id number] DC DATE: STATUS: ADM IN [facility] [address] [place] [address] END OF REPORT
--- NOTE | 2019-08-01 16:08 | NUR ---
OT NOTE: PT REQUIRED TOTAL A WITH POSITONING TECHNIQUES TO DECREASE PRESSURE AREAS. PT REQUIRED TOTAL A WITH LB HYGIENE TASKS. PT COMPLETED UE AAROM TOLERATED. [phone] THANK YOU,STEFANY ONOFRE
[2019-08-02] VITALS: BP 110/55
--- NOTE | 2019-08-02 | NUR ---
PT HAD SOFT, INCONTINENT STOOL. 3 CIRCULAR SORES NOTED AT BUTTOCK AND COCCYX. NO NEEDS AT THIS TIME, CTM
[2019-08-02 04:00] VITALS: BP 128/80
[2019-08-02 07:57] LABS: BASOPHILS 0.5 % (0-2); HEMATOCRIT 35.6 % (36.0-48.0); HEMOGLOBIN 10.9 g/dL (12-16); IMMATURE GRANULOCYTES 0.9 % (0-5); LYMPHOCYTES 9.7 % (15-50); MCHC 30.6 g/dL (31.0-37.0); MEAN PLATELET VOLUME 11.5 fL (7.4-10.4); MONOCYTES 10.7 % (2-11); NEUTROPHILS 76.2 % (40-80); RBC 3.76 10x6/uL (4.00-5.40); RDW 17.6 % (11.5-14.5); WBC 7.9 10x3/uL (4.8-10.8)
[2019-08-02 07:59] LABS: MCV 94.7 fL (80.0-100.0); PLATELET COUNT 97 10x3/uL (130-400)
[2019-08-02 08:05] LABS: ANION GAP 18.3 mmol/L (8-16); CALCIUM 7.8 mg/dL (8.5-10.1); CARBON DIOXIDE 19.5 mmol/L (21.0-32.0); CREATININE - SERUM 1.2 mg/dL (0.6-1.3)
[2019-08-02 08:06] LABS: POTASSIUM - SERUM 4.8 mmol/L (3.5-5.1)
--- NOTE | 2019-08-02 10:32 | NUR ---
ASSESSMENT PER FLOW SHEET. PATIENT IS WITHOUT DISTRESS. BORDERED HEART TO BUTTOCKS AFTER BUTT PASTE.JOSE PURWICK AND PATIENT HAS BEEN CLEANED. HAS BEEN FED BREAKFAST. NEUTROPENIC ISOLATION
[2019-08-02 12:28] LABS: PLATELET ESTIMATE NORMAL; PLATELET MORPHOLOGY PLT CLUMPS PRESENT
--- NOTE | 2019-08-02 13:02 | NUR ---
OT NOTE: PT HEARD YELLING WHILE OUTSIDE ROOM. ENTERED ROOM AND PT APPOLOGIZED BUT STATED THAT SHE COULD NOT USE CALL LIGHT.. I WAS IN PTS ROOM, MANAGEMENT TRAINEE WAS COMING AROUND CHECKING CALL LIGHTS. EXPLAINED THAT PT REQUIRED A "PADCALL" CALL LIGHT, SHE DOES NOT HAVE THE FINGER STRENGTH TO USE CURRENT CALL LIGHT. SHE IN TURN CONTACTED ENGINEERING WHO STATED THAT THEY DID NOT HAVE ANYTHING LIKE THIS. SPOKE WITH JOVANY IN ENGINEERING AND FAXED A PICTURE AND INFORMATION DESCRIBING ITEM.. THIS IS FREQ NEEDED AND HE REPORTED THAT HE WOULD ATTEMPT TO ORDER. RETURNED TO PT ROOM AND MADE NUMEROUS ATTEMPTS TO USE REGULAR CALL LIGHT.. HOWEVER, PT IS NOT ONLY UNABLE TO COORDINATE MOVEMENTS TO REACH AND HOLD CALL LIGHT, BUT SHE ALSO DOES NOT HAVE THE STRENGTH TO PUSH BUTTON. WITH ASSIST OF PHYS THERAPY, WE SAT PT UP ON EOB.. SHE REUQIRED MAX ASSIST FOR STATIC SITTING; PT ACTUALLY HAS GOOD PROPRIOCEPTION, SHE KNOWS WHEN SHE IS LEANING TO SIDE OR FALLING BACKWARDS, BUT DOES NOT HAVE THE TRUNK STRENGTH TO CORRECT IT.. PERFORMED NUMEORUS ACT WHILE ON EOB..PT WAS VERY FATIGUED. PERFORMED EXTENSIVE A/AROM AND PROM WHILE SUPINE IN BED; PRACTICED ROLLING SIDE TO SIDE WITH IMPROVEMENT NOTED FROM INITIAL EVAL. REPOSITIONED PT ON HER R SIDE WITH ADDED PILLOWS BETWEEN KNEES. PT REPORTED THAT SHE WAS COMFORTABLE. NO OTHER NEEDS AT THIS TIME. LILI HONG, OTR/L [phone]
[2019-08-02 15:13] VITALS: BP 110/53
[2019-08-02 15:27] VITALS: BP 115/48
--- NOTE | 2019-08-02 17:04 | NUR ---
OT NOTE: PT COMPLETED UE PROM TOLERATED. PT COMPLETED UE POSITIONING WITH MATHEW A. [phone] MARY OLSON COTA
[2019-08-02 18:43] VITALS: BP 167/72
--- NOTE | 2019-08-02 18:48 | NUR ---
REMAINS WITHOUT NEEDS,WITHOUT CHANGE. CONT PLAN OF CARE
[2019-08-02 20:00] VITALS: BP 129/65
--- NOTE | 2019-08-03 | NUR ---
IV TO LEFT WRIST INFILTRATED. SURROUNDING SKIN RED AND EDEMATOUS. DCd WITH CATH INTACT. 2 ATTEMPTS TO RESITE BY NATALIYA BRENNAN. UNSUCCESSFUL. WILL PASS IN REPORT.
--- NOTE | 2019-08-03 03:44 | NUR ---
I have reviewed this patient and I concur with the Shift Assessment completed by the Licensed Practical Nurse today this shift.
[2019-08-03 04:00] VITALS: BP 109/36
[2019-08-03 05:39] LABS: BASOPHILS 0.2 % (0-2); EOSINOPHILS 4.3 % (0-7); HEMATOCRIT 37.5 % (36.0-48.0); HEMOGLOBIN 11.8 g/dL (12-16); IMMATURE GRANULOCYTES 1.3 % (0-5); LYMPHOCYTES 7.4 % (15-50); MCH 29.2 pg (26.0-34.0); MCHC 31.5 g/dL (31.0-37.0); MCV 92.8 fL (80.0-100.0); MONOCYTES 8.3 % (2-11); NEUTROPHILS 78.5 % (40-80); PLATELET COUNT 105 10x3/uL (130-400); RBC 4.04 10x6/uL (4.00-5.40); RDW 17.2 % (11.5-14.5); WBC 6.1 10x3/uL (4.8-10.8)
--- NOTE | 2019-08-03 06:10 | NUR ---
PT HAS NOT PUT OUT URINE IN&OUT CATH FOR CULTURE WAS OBTAINED AT BEGINNING OF SHIFT. BLADDER SCAN READS 912ML. PT DENIES URGE TO VOID. DR. SELF NOTIFIED AND 18F STINSON CATHETER INSERTED WITH PTs INFORMED CONSENT, IMMEDIATE CLOUDY URINE/DARK URINE RETURN 1ST ATTEMPT. 10ML BALLOON INFLATED. SECURED TO RIGHT LEG WITH STAT LOCK. PT TOLERATED WELL, STATES SHE DOES FEEL BETTER. 1000ML EMPTIED FROM STINSON COLLECTION BAG, WILL CONTINUE TO MONITOR.
[2019-08-03 06:29] LABS: ANION GAP 17.5 mmol/L (8-16); CARBON DIOXIDE 23.4 mmol/L (21.0-32.0); CREATININE - SERUM 1.4 mg/dL (0.6-1.3); POTASSIUM - SERUM 4.9 mmol/L (3.5-5.1)
[2019-08-03 08:41] VITALS: BP 102/74
--- NOTE | 2019-08-03 09:15 | NUR ---
PT LYING ON RT SAID, REQUESTED PAIN MEDICATION WITH SCHEDULED MEDS THIS MORNING, PT IS ALERT AND CONFUSED AT TIMES, NO IV ACCESS, RECONSULT VASCULAR ACCESS , PT HAS MEPLEX DRESSING TO COCCYX AREA, APPLIED CREAM TO BACK SIDE, NO OTHER NEEDS AT THIS TIME. CONTINUE WITH PLAN OF CARE
--- NOTE | 2019-08-03 11:34 | NUR ---
I have reviewed this patient and I concur with the Shift Assessment completed by the Licensed Practical Nurse today this shift.
--- NOTE | 2019-08-03 12:12 | NUR ---
TURNED PT BACK TO RT SIDE, ATTEMPTED IV ACCESS IN PT RT FA X2 UNSUCCESSFIL IV BLEW EACH TIME. NO SIGNS OF DISTRESS, CONTINUE WITH PLAN OF CARE
[2019-08-03 12:16] VITALS: BP 97/36
--- NOTE | 2019-08-03 13:17 | NUR ---
PT ON CL, DAUGHTER IN LAW AT BEDSIDE, PT STATED SHE IS SUPPOSE TO BE HAVING SHOTS EVERY DAY FOR BLOOD CLOTS, REVIEWED PT MAR AND RX HX AND DID NOT SEE AN ORDER FOR LOVENOX, PT STATED SHE GETS IT EVERY DAY AT [facility] AND SHOULD HAVE BEEN RESTARTED ON IT HERE. WILL HAVE DOCTOR PAGED TO CONFIRM IF NEEDS TO BE RESTARTED
--- NOTE | 2019-08-03 14:15 | MORECARE ---
CASE MANAGEMENT DISCHARGE SUMMARY PATIENT: NIKKI MARTIN UNIT: [id number] ADM DATE: 07/24/19 AGE: 73 : 43 SEX: F ROOM/BED: D.2216 AUTHOR: АНДРЕЙ CORDON PHYSICIAN: REFERRING PHYSICIAN: LASHAUN CROWLEY MD DATE OF SERVICE: 08/03/19 Discharge Plan Patient Name: NIKKI MARTIN Facility: [facility]:[place] : 1945 Planned Disposition: Inpatient Rehab Anticipated Discharge Date: Discharge Date: Expected LOS: Initial Reviewer: [email or web address] Initial Review Date: 07/24/2019 Generated: 08/03/19 3:14 pm DCP- Discharge Planning Updated by [email or web address]: Shameka Ch on 08/01/19 11:[address] CM faxed Face Sheet [facility], Attn: Melina. DCP- Discharge Planning Updated by [email or web address]: Precious Gutierrez on 07/31/19 9:[address] Patient Name: NIKKI MARTIN Admission Status: ER Accout number: [id number] Admission Date: 07-24-2019 : 1945 Admission Diagnosis:PNEUMONIA, UNSPECIFIED ORGANISM Attending: LASHAUN CROWLEY Current LOS: 7 Anticipated DC Date: Planned Disposition: Inpatient Rehab Primary Insurance: MEDICARE A & B Discharge Planning Comments: CM met with patient to complete initial dc planning assessment. CM educated patient on the CM role and verbal consent given by patient to complete assessment. Patient lives at home with her spouse, son and daughter in law. At discharge patient plans to go to inpatient rehab at [facility] and feels this is a safe discharge. CM discussed availability of home health, rehab services, and medical equipment. She is current with [facility] with OT/ PT. She is happy with them and would like to use them again when she gets home. She has a elevated toilet, bench, walker, wheelchair at home. She stated that she might need help with ADL's now. She was unable to grasp the pen to sign my ADRIANNE paper. A verbal consent was obtained for [facility] & placed on chart. Patient denied known discharge needs at this time. CM will continue to follow and will assist as needed with dc plans/needs. Signal Intelligence/Electronic Warfare: Precious Gutierrez DCPIA - Discharge Planning Initial Assessment Updated by [id number]: Precious Gutierrez on 07/31/19 10:40 am * Is the patient Alert and Oriented? Yes * How many steps to enter\exit or inside your home? * PCP CARLINE * Pharmacy [facility] [address] * Preadmission Environment Home with Family * ADLs Partial Dependent * Partial ADLs (Assistance needed) Bathing Eating Toileting * Equipment Bedside Commode Elevated Toliet Seat Rolling Walker Shower Chair Wheelchair * List name and contact numbers for known caregivers / representatives who currently or will assist patient after discharge: EUGENIO (SPOUSE) [phone] * Verbal permission to speak to the caregivers and representatives has been obtained from the patient. N/A * Community resources currently utilized Home Health * Please name any agencies selected above. [facility] * Additional services required to return to the preadmission environment? Yes * Can the patient safely return to the preadmission environment? No * Has this patient been hospitalized within the prior 30 days at any hospital? Yes External Providers External Provider: [facility] Next Contact Date: Service Request Date: Service Type: Resolution: Reviewer: Comments: Coverage Notice Reviewer: [id number] - Precious Gutierrez Notice Issued Date-Time: 07/31/2019 10:30 Notice Type: Patient Choice Letter Notice Delivered To: Patient Relationship to Patient: Consulting Practice Manager Name: Delivery Method: HAND - Hand Delivered Barbie Days: Prior Verbal Notification: Yes Recipient Understood Notice: Yes Recipient Signature: Med Rec Note Co-signed by Attending: Coverage Notice Comment: ADRIANNE FOR [facility] & CURRENT WITH [facility] Last DP export: 08/01/19 11:59 a Patient Name: NIKKI MARTIN Page [phone] at 1415 All edits/amendments must be made on the electronic document DICTATION DATE: 08/03/19 1415 FIELD ARTILLERY OPERATIONS SPECIALIST: NAZARIO 08/03/19 1415 RPT#: [id number] DC DATE: STATUS: ADM IN [facility] [address] [place] [address] END OF REPORT
--- NOTE | 2019-08-03 14:22 | MORECARE ---
CASE MANAGEMENT DISCHARGE SUMMARY PATIENT: NIKKI MARTIN UNIT: [id number] ADM DATE: 07/24/19 AGE: 73 : 43 SEX: F ROOM/BED: D.2216 AUTHOR: АНДРЕЙ CORDON PHYSICIAN: REFERRING PHYSICIAN: LASHAUN CROWLEY MD DATE OF SERVICE: 08/03/19 Discharge Plan Patient Name: NIKKI MARTIN Facility: [facility]:[place] : 1945 Planned Disposition: Inpatient Rehab Anticipated Discharge Date: Discharge Date: Expected LOS: Initial Reviewer: [email or web address] Initial Review Date: 07/24/2019 Generated: 08/03/19 3:21 pm Comments DCP- Discharge Planning Updated by [email or web address]: Precious Gutierrez on 08/03/19 1:[address] STARTED THE PROCESS TO GET PATIENT TRANSFERED TO [facility] I SPOKE WITH JOYA AT THE TRANSFER CENTER DCP- Discharge Planning Updated by [email or web address]: Shameka Ch on 08/01/19 11:[address] CM faxed Face Sheet and H/P to [facility], Attn: Melina. DCP- Discharge Planning Updated by [email or web address]: Precious Gutierrez on 07/31/19 9:[address] Patient Name: NIKKI MARTIN Admission Status: ER Accout number: [id number] Admission Date: 07-24-2019 : 1945 Admission Diagnosis:PNEUMONIA, UNSPECIFIED ORGANISM Attending: LASHAUN CROWLEY Current LOS: 7 Anticipated DC Date: Planned Disposition: Inpatient Rehab Primary Insurance: MEDICARE A & B Discharge Planning Comments: CM met with patient to complete initial dc planning assessment. CM educated patient on the CM role and verbal consent given by patient to complete assessment. Patient lives at home with her spouse, son and daughter in law. At discharge patient plans to go to inpatient rehab at [facility] and feels this is a safe discharge. CM discussed availability of home health, rehab services, and medical equipment. She is current with [facility] with OT/ PT. She is happy with them and would like to use them again when she gets home. She has a elevated toilet, bench, walker, wheelchair at home. She stated that she might need help with ADL's now. She was unable to grasp the pen to sign my ADRIANNE paper. A verbal consent was obtained for [facility] & placed on chart. Patient denied known discharge needs at this time. CM will continue to follow and will assist as needed with dc plans/needs. Manager Application: Precious Gutierrez DCPIA - Discharge Planning Initial Assessment Updated by [email or web address]: Precious Gutierrez on 07/31/19 10:40 am * Is the patient Alert and Oriented? Yes * How many steps to enter\exit or inside your home? * PCP CARLINE * Pharmacy [facility] * Preadmission Environment Home with Family * ADLs Partial Dependent * Partial ADLs (Assistance needed) Bathing Eating Toileting * Equipment Bedside Commode Elevated Tol[place] Seat Rolling Walker Shower Chair Wheelchair * List name and contact numbers for known caregivers / representatives who currently or will assist patient after discharge: EUGENIO (SPOUSE) [phone] * Verbal permission to speak to the caregivers and representatives has been obtained from the patient. N/A * Community resources currently utilized Home Health * Please name any agencies selected above. [facility] * Additional services required to return to the preadmission environment? Yes * Can the patient safely return to the preadmission environment? No * Has this patient been hospitalized within the prior 30 days at any hospital? Yes Coverage Notice Reviewer: [id number] - Precious Gutierrez Notice Issued Date-Time: 07/31/2019 10:30 Notice Type: Patient Choice Letter Notice Delivered To: Patient Relationship to Patient: Blacksmith Helper Name: Delivery Method: HAND - Hand Delivered Barbie Days: Prior Verbal Notification: Yes Recipient Understood Notice: Yes Recipient Signature: Med Rec Note Co-signed by Attending: Coverage Notice Comment: ADRIANNE FOR [facility] & CURRENT WITH [facility] Last DP export: 08/03/19 1:15 p Patient Name: NIKKI MARTIN Page [id number] at 1422 All edits/amendments must be made on the electronic document DICTATION DATE: 08/03/191420 INTERNATIONAL GUEST COORDINATOR: NAZARIO 08/03/19 142 RPT#: [id number] DC DATE: STATUS: ADM IN [facility] [address] [place] [address] END OF REPORT
--- NOTE | 2019-08-03 14:55 | MORECARE ---
CASE MANAGEMENT DISCHARGE SUMMARY PATIENT: NIKKI MARTIN UNIT: [id number] ADM DATE: 07/24/19 AGE: 73 : 43 SEX: F ROOM/BED: D.2216 AUTHOR: АНДРЕЙ CORDON PHYSICIAN: REFERRING PHYSICIAN: LASHAUN CROWLEY MD DATE OF SERVICE: 08/03/19 Discharge Plan Patient Name: NIKKI MARTIN Facility: [facility]:[place] : 1945 Planned Disposition: Inpatient Rehab Anticipated Discharge Date: Discharge Date: Expected LOS: Initial Reviewer: [email or web address] Initial Review Date: 07/24/2019 Generated: 08/03/19 3:54 pm Comments DCP- Discharge Planning Updated by [email or web address]: Precious Gutierrez on 08/03/19 1:[address] JOYA WITH THE TRANSFER CENTER CALLED AND STATED THAT THERE ARE NO BEDS AT [facility] ON THE [address]. THE PATIENT IS ON A LIST, THEY WILL KEEP UP POSTED. DCP- Discharge Planning Updated by [email or web address]: Precious Gutierrez on 08/03/19 1:[address] STARTED THE PROCESS TO GET PATIENT TRANSFERED TO [facility] I SPOKE WITH JOYA AT THE TRANSFER CENTER DCP- Discharge Planning Updated by [email or web address]: Shameka Ch on 08/01/19 11:[address] CM faxed Face Sheet and H/P to [facility], Attn: Melina. DCP- Discharge Planning Updated by [email or web address]: Precious Gutierrez on 07/31/19 9:[address] Patient Name: NIKKI MARTIN Admission Status: ER Accout number: [id number] Admission Date: 07-24-2019 : 1945 Admission Diagnosis:PNEUMONIA, UNSPECIFIED ORGANISM Attending: LASHAUN CROWLEY Current LOS: 7 Anticipated DC Date: Planned Disposition: Inpatient Rehab Primary Insurance: MEDICARE A & B Discharge Planning Comments: CM met with patient to complete initial dc planning assessment. CM educated patient on the CM role and verbal consent given by patient to complete assessment. Patient lives at home with her spouse, son and daughter in law. At discharge patient plans to go to inpatient rehab at [facility] and feels this is a safe discharge. CM discussed availability of home health, rehab services, and medical equipment. She is current with [facility] with OT/ PT. She is happy with them and would like to use them again when she gets home. She has a elevated toilet, bench, walker, wheelchair at home. She stated that she might need help with ADL's now. She was unable to grasp the pen to sign my ADRIANNE paper. A verbal consent was obtained for [facility] & placed on chart. Patient denied known discharge needs at this time. CM will continue to follow and will assist as needed with dc plans/needs. Roving Technician: Precious Gutierrez DCPIA - Discharge Planning Initial Assessment Updated by [email or web address]: Precious Gutierrez on 07/31/19 10:40 am * Is the patient Alert and Oriented? Yes * How many steps to enter\exit or inside your home? * PCP CARLINE * Pharmacy [facility] * Preadmission Environment Home with Family * ADLs Partial Dependent * Partial ADLs (Assistance needed) Bathing Eating Toileting * Equipment Bedside Commode Elevated Tol[place] Seat Rolling Walker Shower Chair Wheelchair * List name and contact numbers for known caregivers / representatives who currently or will assist patient after discharge: EUGENIO (SPOUSE) [phone] * Verbal permission to speak to the caregivers and representatives has been obtained from the patient. N/A * Community resources currently utilized Home Health * Please name any agencies selected above. [facility] * Additional services required to return to the preadmission environment? Yes * Can the patient safely return to the preadmission environment? No * Has this patient been hospitalized within the prior 30 days at any hospital? Yes Coverage Notice Reviewer: [id number] - Precious Gutierrez Notice Issued Date-Time: 07/31/2019 10:30 Notice Type: Patient Choice Letter Notice Delivered To: Patient Relationship to Patient: Electro Mechanical Solar Technician Name: Delivery Method: HAND - Hand Delivered Barbie Days: Prior Verbal Notification: Yes Recipient Understood Notice: Yes Recipient Signature: Med Rec Note Co-signed by Attending: Coverage Notice Comment: [facility] FOR [facility] & CURRENT WITH [facility] Last DP export: 08/03/19 1:22 p Patient Name: NIKKI MARTIN Page [id number] at 1455 All edits/amendments must be made on the electronic document DICTATION DATE: 08/03/191453 CLOTH LAYER: NAZARIO 08/03/191453 RPT#: [id number] DC DATE: STATUS: ADM IN [facility] [address] [place] [address] END OF REPORT
--- NOTE | 2019-08-03 15:27 | NUR ---
TURNED PT ON LEFT SIDE, PERFORMED QUINT[facility] CARE AFTERWARDS, PT STILL CONFUSED AND EASILY REORIENTED, APPLIED CREAM TO PT BACKSIDE AND READJUSTED PILLOWS. NO OTHER NEEDS VOICED, CONTINUE WITH PLAN OF CARE
[2019-08-03 16:15] VITALS: BP 114/44
--- NOTE | 2019-08-03 16:47 | MORECARE ---
CASE MANAGEMENT DISCHARGE SUMMARY PATIENT: NIKKI MARTIN UNIT: [id number] ADM DATE: 07/24/19 AGE: 73 : 43 SEX: F ROOM/BED: D.2216 AUTHOR: АНДРЕЙ CORDON PHYSICIAN: REFERRING PHYSICIAN: LASHAUN CROWLEY MD DATE OF SERVICE: 08/03/19 Discharge Plan Patient Name: NIKKI MARTIN Facility: [facility]:[place] : 1945 Planned Disposition: Inpatient Rehab Anticipated Discharge Date: Discharge Date: Expected LOS: Initial Reviewer: [email or web address] Initial Review Date: 07/24/2019 Generated: 08/03/19 5:47 pm DCP- Discharge Planning Updated by [email or web address]: Precious Gutierrez on 08/03/19 1:[address] JOYA WITH THE TRANSFER CENTER CALLED AND STATED THAT THERE ARE NO BEDS AT [facility] ON THE [address]. THE PATIENT IS ON A LIST, THEY WILL KEEP UP POSTED. DCP- Discharge Planning Updated by [id number]: Precious Gutierrez on 08/03/19 1:[address] STARTED THE PROCESS TO GET PATIENT TRANSFERED TO [facility] I SPOKE WITH JOYA AT THE TRANSFER CENTER DCP- Discharge Planning Updated by [email or web address]: Shameka Ch on 08/01/19 11:[address] CM faxed Face Sheet and H/P to [facility], Attn: Melina. DCP- Discharge Planning Updated by [id number]: Precious Gutierrez on 07/31/19 9:[address] Patient Name: NIKKI MARTIN Admission Status: ER Accout number: [id number] Admission Date: 07-24-2019 : 1945 Admission Diagnosis:PNEUMONIA, UNSPECIFIED ORGANISM Attending: LASHAUN CROWLEY Current LOS: 7 Anticipated DC Date: Planned Disposition: Inpatient Rehab Primary Insurance: MEDICARE A & B Discharge Planning Comments: CM met with patient to complete initial dc planning assessment. CM educated patient on the CM role and verbal consent given by patient to complete assessment. Patient lives at home with her spouse, son and daughter in law. At discharge patient plans to go to inpatient rehab at [facility] and feels this is a safe discharge. CM discussed availability of home health, rehab services, and medical equipment. She is current with [facility] with OT/ PT. She is happy with them and would like to use them again when she gets home. She has a elevated toilet, bench, walker, wheelchair at home. She stated that she might need help with ADL's now. She was unable to grasp the pen to sign my ADRIANNE paper. A verbal consent was obtained for [facility] & placed on chart. Patient denied known discharge needs at this time. CM will continue to follow and will assist as needed with dc plans/needs. Rotary Shear Cutter: Precious Gutierrez DCPIA - Discharge Planning Initial Assessment Updated by [email or web address]: Precious Gutierrez on 07/31/19 10:40 am * Is the patient Alert and Oriented? Yes * How many steps to enter\exit or inside your home? * PCP CARLINE * Pharmacy [facility] * Preadmission Environment Home with Family * ADLs Partial Dependent * Partial ADLs (Assistance needed) Bathing Eating Toileting * Equipment Bedside Commode Elevated Toliet Seat Rolling Walker Shower Chair Wheelchair * List name and contact numbers for known caregivers / representatives who currently or will assist patient after discharge: EUGENIO (SPOUSE) [phone] * Verbal permission to speak to the caregivers and representatives has been obtained from the patient. N/A * Community resources currently utilized Home Health * Please name any agencies selected above. [facility] * Additional services required to return to the preadmission environment? Yes * Can the patient safely return to the preadmission environment? No * Has this patient been hospitalized within the prior 30 days at any hospital? Yes Coverage Notice Reviewer: [id number] - Precious Gutierrez Notice Issued Date-Time: 07/31/2019 10:30 Notice Type: Patient Choice Letter Notice Delivered To: Patient Relationship to Patient: Hydroelectric Powerplant Supervisor Name: Delivery Method: HAND - Hand Delivered Barbie Days: Prior Verbal Notification: Yes Recipient Understood Notice: Yes Recipient Signature: Med Rec Note Co-signed by Attending: Coverage Notice Comment: [facility]NE [facility] & CURRENT WITH [facility] Last DP export: 08/03/19 1:55 p Patient Name: NIKKI MARTIN Page [id number] at 1647 All edits/amendments must be made on the electronic document DICTATION DATE: 08/03/191646 SIGNS SALES REPRESENTATIVE: NAZARIO 08/03/191646 RPT#: [id number] DC DATE: STATUS: ADM IN [facility] [address] [place] [address] END OF REPORT
--- NOTE | 2019-08-03 17:21 | NUR ---
PT FAMILY AT [facility], TURNED PT AGAIN ON LEFT SIDE FACING DOOR, BLOOD SUGAR IS 113, HARDLY ANY URINE IN CATHETER BAG. CONTINUE WITH PLAN OF CARE
[2019-08-03 20:00] VITALS: BP 107/41
--- NOTE | 2019-08-03 20:00 | NUR ---
PATIENT RESTING IN BED WATCHING TV. NO S/S OF ACUTE DISTRESS. PATIENT C/O WANTING TO BE MOVED OFF OF HER BACK. PATIENT WAS ROLLED TO RIGHT SIDE WITH PILLOW UNDERNEATH, PER REQUEST. PATIENT ON 7L HIGH FLOW O2 NASAL CANNULA. PATIENT HAS NO IV ACCESS AT THIS TIME. PATTIENT IS BEDFAST AND A TOTAL. BILAT ARMS AND LEGS ARE CONTRACTED AND WEAK. PATIENT HAS STINSON AND IS INCONTINENT OF BOWEL. PATIENT IS ON REVERSE ISOLATION. CALL LIGHT WITHIN REACH. BED ALARM ON. WILL CONTINUE TO MONITOR.
--- NOTE | 2019-08-03 21:20 | NUR ---
RECEIVED NOTICE FROM [facility] THAT THEY HAVE A BED AVAILABLE FOR PT TO TRANSFER YINA. CALLED DR SELF WHO CAME AND SIGNED TRANSFER PAPERWORK. CALLED TAKE UP SUPERVISOR TO ADVISE OF TRANSFER. CALLED PT'S POA / SPOUSE SHRUTHI MARTIN TO GET VERBAL CONSENT FOR TRANSFER. ALL RECORDS / LABS / MAR'S / DISCHARGE MED REC / AND PHYSICIANS NOTES COPIED TO BE SENT WITH PATIENT. DISC WITH ALL IMAGING SENT WITH PAPERWORK. PT TESTED FOR COVID 19 ON JULY 28, 2019 AND WAS NEGATIVE. REPORT CALLED TO [facility] AT [facility]. TAKE UP SUPERVISOR REVIEWED AND SIGNED TRANSFER PAPERWORK. [facility] CALLED TO ORDER TRANSFER...WAS NOTIFIED THAT THERE MAY A DELAY. PT WAS GIVEN ALL 2100 MEDS AND PRN PAIN MED...MAR INCLUDED.
--- NOTE | 2019-08-04 00:20 | NUR ---
PATIENT ESCORTED OUT VIA STRETCHER ACCOMPANIED BY EMT. PATIENT IS ON HER WAY TO [facility]. NO S/S OF ACUTE DISTRESS. NO FURTHER C/O. PATIENT HAS NO FURTHER QUESTIONS.
--- NOTE | 2019-08-04 12:29 | MORECARE ---
CASE MANAGEMENT DISCHARGE SUMMARY PATIENT: NIKKI MARTIN UNIT: [id number] ADM DATE: 07/24/19 AGE: 73 : 43 SEX: F ROOM/BED: D.2216 AUTHOR: АНДРЕЙ CORDON PHYSICIAN: REFERRING PHYSICIAN: LASHAUN CROWLEY MD DATE OF SERVICE: 08/04/19 Discharge Plan Patient Name: NIKKI MARTIN Facility: [facility]:[place] : 1945 Planned Disposition: Inpatient Rehab Anticipated Discharge Date: Discharge Date: 08/04/2019 Expected LOS: 0 Initial Reviewer: [email or web address] Initial Review Date: 07/24/2019 Generated: 08/04/19 1:29 pm DCP- Discharge Planning Updated by [email or web address]: Precious Gutierrez on 08/03/19 1:[address] JOYA WITH THE TRANSFER CENTER CALLED AND STATED THAT THERE ARE NO BEDS AT [facility] ON THE [address]. THE PATIENT IS ON A LIST, THEY WILL KEEP UP POSTED. DCP- Discharge Planning Updated by [email or web address]: Precious Gutierrez on 08/03/19 1:[address] STARTED THE PROCESS TO GET PATIENT TRANSFERED TO [facility] I SPOKE WITH JOYA AT THE TRANSFER CENTER DCP- Discharge Planning Updated by [email or web address]: Shameka Ch on 08/01/19 11:[address] CM faxed Face Sheet and H/P to [facility], Attn: Melina. DCP- Discharge Planning Updated by [email or web address]: Precious Gutierrez on 07/31/19 9:[address] Patient Name: NIKKI MARTIN Admission Status: ER Accout number: [id number] Admission Date: 07-24-2019 : 1945 Admission Diagnosis:PNEUMONIA, UNSPECIFIED ORGANISM Attending: LASHAUN CROWLEY Current LOS: 7 Anticipated DC Date: Planned Disposition: Inpatient Rehab Primary Insurance: MEDICARE A & B Discharge Planning Comments: CM met with patient to complete initial dc planning assessment. CM educated patient on the CM role and verbal consent given by patient to complete assessment. Patient lives at home with her spouse, son and daughter in law. At discharge patient plans to go to inpatient rehab at [facility] and feels this is a safe discharge. CM discussed availability of home health, rehab services, and medical equipment. She is current with [facility] with OT/ PT. She is happy with them and would like to use them again when she gets home. She has a elevated toilet, bench, walker, wheelchair at home. She stated that she might need help with ADL's now. She was unable to grasp the pen to sign my ADRIANNE paper. A verbal consent was obtained for [facility] & placed on chart. Patient denied known discharge needs at this time. CM will continue to follow and will assist as needed with dc plans/needs. Microstrategy Reports Developer: Precious Gutierrez DCPIA - Discharge Planning Initial Assessment Updated by [email or web address]: Precious Gutierrez on 07/31/19 10:40 am * Is the patient Alert and Oriented? Yes * How many steps to enter\exit or inside your home? * PCP CARLINE * Pharmacy [facility] [address] * Preadmission Environment Home with Family * ADLs Partial Dependent * Partial ADLs (Assistance needed) Bathing Eating Toileting * Equipment Bedside Commode Elevated Tol[place] Seat Rolling Walker Shower Chair Wheelchair * List name and contact numbers for known caregivers / representatives who currently or will assist patient after discharge: EUGENIO (SPOUSE) [phone] * Verbal permission to speak to the caregivers and representatives has been obtained from the patient. N/A * Community resources currently utilized Home Health * Please name any agencies selected above. [facility] * Additional services required to return to the preadmission environment? Yes * Can the patient safely return to the preadmission environment? No * Has this patient been hospitalized within the prior 30 days at any hospital? Yes Coverage Notice Reviewer: [id number] - Precious Gutierrez Notice Issued Date-Time: 07/31/2019 10:30 Notice Type: Patient Choice Letter Notice Delivered To: Patient Relationship to Patient: Weight Clerk Name: Delivery Method: HAND - Hand Delivered Barbie Days: Prior Verbal Notification: Yes Recipient Understood Notice: Yes Recipient Signature: Med Rec Note Co-signed by Attending: Coverage Notice Comment: [facility] FOR [facility] CURRENT WITH [facility] Last DP export: 08/03/19 3:47 p Patient Name: NIKKI MARTIN Page [id number] at 1229 All edits/amendments must be made on the electronic document DICTATION DATE: 08/04/199 INDUSTRIAL ECOLOGY TECHNICIAN: NAZARIO 08/04/19 1229 RPT#: [id number] DC DATE:08/04/19 STATUS: DIS IN [facility] [address] [place] [address] END OF REPORT
== END 2019-08-04 00:37 | disposition short-term general hospital (02) | DRG 193 ==
LOC: D.ER 17:17 → D.MS 19:27 → D.M2 07-28 13:41 → D.MS 07-28 22:09 → D.SDCHOLD 07-31 10:11 → D.MS 07-31 10:12
PROVIDERS: Family Medicine; ADMIT Family Medicine; ATTEND Family Medicine
DX: J18.9 Pneumonia, unspecified organism (principal); J96.01 Acute respiratory failure with hypoxia; I50.31 Acute diastolic (congestive) heart failure; C90.00 Multiple myeloma not having achieved remission; N39.0 Urinary tract infection, site not specified; I13.0 Hypertensive heart and chronic kidney disease with heart failure and stage 1 through stage 4 chronic kidney disease, or unspecified chronic kidney disease; E11.22 Type 2 diabetes mellitus with diabetic chronic kidney disease; N18.3 Chronic kidney disease, stage 3 (moderate); D64.9 Anemia, unspecified; R53.81 Other malaise; G62.9 Polyneuropathy, unspecified; L40.9 Psoriasis, unspecified; I48.91 Unspecified atrial fibrillation